=== PATIENT | female | born 1985 | race Caucasian/White ===

== ENCOUNTER 2016-08-23 21:10 | Inpatient (IN) | payer OTHER ==
[2016-08-24] MEDS ORDERED: BUTORPHANOL TARTRATE 1 MG/ML VIAL IVPB ONE ×2 (01:28→13:35)
[2016-08-24] MEDS ORDERED: DEXTROSE 5%-LACTATED RINGERS 1,000 ML IV SCH (01:30)
[2016-08-24] MEDS ORDERED: SODIUM PHOSPHATE/NA BIPHOS 133 ML ENEMA PR ONE (01:31)
--- NOTE | 2016-08-24 01:46 | HP ---
Past Medical History - Primary Care Physician PCP:: Carmen Hurley - Admission Chief Complaint: 30 yrs ,40 weeks by dates 7 38.5/7 weeks by sono is admitted in early labor . Onset Lp since 5.00pm 08/23/16 . Grand Multipara. Large tortuous bilaleral varicose veins in both legs History of Present Illness: pnc at [address] [place] [address] .Wt gain 15 lbs work up : O Pos, , Hbsag neg, Rpr nr, Rubella pos,Hiv neg, Quantiferon neg, GBS neg Gc/Ct neg . 1 Hr Gtt 143, 3Hr Gtt wnl ( 69,149,117,,100) Serial growth sono were done by MFM. .Last sono on 07/17/16 32.5/7 wks, 72% tile growth(2191gm), bpp8/8, Vx NT Screen was not done. Quad Screen was neg pt did not use TEDS during for varicose veins bilateral ,. ( reason she stated itching ) . 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 01/24/16 pap NILM) ...: 7 ...Para: 5 ...Term: 5 ...Spon : 1 ...LMP: 11/18/15 ... Weeks Gestation by Dates: 40 ...EDC by Dates: 08/24/16 ...EDC by Sono: 09/02/16 (38.5 weeks ) Additional OB History: G1 06/19/03 ,girl [facility]. G2 06/27/05 boy [facility]. G3 04/23/08 boy 8'10" [facility]. G4 07/20/09 sp ab. G5 11/15/11 boy 7'11' [facility]. G6 11/25/12 boy 8; [facility] Heme/Onc: No: Anemia Infectious Disease: Yes: STD's (h/o Hr HPV pos & conyloma h/o chlamydia treated in past) Psych: No: Addictions, Anxiety, Bipolar, Depression - Past Surgical History Past Surgical History: Yes: None Hx Myomectomy: No Hx Transabdominal Cerclage: No - Smoking History Smoking history: Never smoked Aproximately how many cigarettes per day: 0 - Alcohol/Substance Use Hx Alcohol Use: No History of Substance Use: reports: None - Social History History of Recent Travel: No Home Medications - Allergies Allergies/Adverse Reactions: Allergies Allergy/AdvReac Type Severity Reaction Status Date / Time No Known Allergies Allergy Verified 08/24/16 02:09 - Home Medications Home Medications: Ambulatory Orders Ferrous Sulfate 325 mg PO DAILY 08/24/16 Vit Calc,Iron,Folic [ Vitamins] 1 each PO DAILY 08/24/16 Physical Exam - Maternity Vital Signs: Vital Signs Temperature 98.0 F 08/23/16 21:30 Pulse Rate 82 08/23/16 21:30 Respiratory Rate 20 08/23/16 21:30 Blood Pressure 124/72 08/23/16 21:30 O2 Sat by Pulse Oximetry (%) Constitutional: Yes: Well Nourished, Moderate Distress Eyes: Yes: WNL HENT: Yes: WNL, Normocephalic Neck: Yes: WNL Cardiovascular: Yes: WNL, Regular Rate and Rhythm Lungs: Clear to auscultation Breast(s): Yes: WNL - Abdominal Exam/OB Fundal Height: 38 Number of Fetuses: Single Presentation: Vertex Contractions: Yes Regularity: Regular (3-4min) Intensity: Moderate Heart Rate (range): 140 Heart Rate Location: [facility] Category: I Accelerations: Uniform Decelerations: None - Vaginal Exam/OB Vaginal Bleediing: No Dilatation (cm): 1-2 Effacement (%): 50 Amniotic Membrane Status: Intact Presentation: Vertex/Position Station: -3 - Physical Exam Musculoskeletal: Yes: WNL Extremities: Yes: WNL, Calf Tenderness, Delayed Capillary Refill Edema: LLE: 1+, RLE: 1+ Integumentary: Yes: Pressure Ulcer (bilateral both legs, dry skin . ulcer from scratcing rt leg>lt leg), Venous Stasis Changes (blateral large totuous varicose veins upto thigh) Deep Tendon Reflex Grade: Normal +2 ...Motor Strength: WNL Psychiatric: Yes: WNL, Alert, Oriented - Labs Lab Results: Laboratory Tests 08/24/16 08/24/16 08/24/16 01:45 01:45 01:45 WBC 6.8 Hgb 12.0 D Hct 35.0 D Plt Count 173 Neutrophils % 66.7 Lymphocytes % 26.2 Monocytes % 5.5 INR 0.96 PTT (Actin FS) 26.8 L Sodium 140 Potassium 3.4 L Chloride 105 BUN 7 D Creatinine 0.5 L Random Glucose 98 D Urine Protein Ur Leukocyte Esterase Urine RBC Urine WBC 08/24/16 05:40 WBC Hgb Hct Plt Count Neutrophils % Lymphocytes % Monocytes % INR PTT (Actin FS) Sodium Potassium Chloride BUN Creatinine Random Glucose Urine Protein Negative Ur Leukocyte Esterase Trace H Urine RBC 2 Urine WBC 3 Problem List - Problems (1) 40 weeks gestation of Code(s): Z3A.40 - 40 WEEKS GESTATION OF (2) Labor established Code(s): AZF9877 - (3) Varicose veins of bilateral lower extremities with other complications Code(s): I83.893 - VARICOSE VEINS OF BI LOW EXTREM W OTH COMPLICATIONS (4) Grand multipara in labor Code(s): O09.40 - SUPERVISION OF W GRAND MULTIPARITY, UNSP TRIMESTER Assessment/Plan 30 yrs , ,40 weeks by dates, 38.5 weeks by sono admitted in early labor, ( latent labor ) pt very uncomfortable . bilateral large varicose veins . gbs neg plan fleet enema, shower stadol prn for labor analgesia pitocin augmentation prn trial vaginal delivery
[2016-08-24 02:24] LABS: BASOPHIL 0.5 % (0-2.0); EOSINOPHIL 1.1 % (0-4.5); MCH 31.4 pg (25.7-33.7); MCHC 34.4 g/dl (32.0-36.0); MEAN CELL VOLUME 91.2 fl (80-96); MEAN PLT VOLUME 8.5 fl (7.5-11.1); NEUTROPHILS 66.7 % (42.8-82.8); PLATELET COUNT 173 K/MM3 (134-434); RDW 13.8 % (11.6-15.6); WHITE BLOOD COUNT 6.8 K/mm3 (4.0-10.0)
[2016-08-24 02:38] VITALS: BMI 34.6
[2016-08-24 02:45] LABS: INR 0.96 (0.82-1.09); PROTHROMBIN TIME (PATIENT) 10.5 SEC (9.98-11.88)
[2016-08-24 02:48] LABS: ACTIVATED PTT 26.8 SECONDS (26.9-34.4)
[2016-08-24 02:53] LABS: CALCIUM 8.4 mg/dL (8.5-10.1); CREATININE 0.5 mg/dL (0.55-1.02)
[2016-08-24] MEDS ORDERED: OXYTOCIN 15 UNITS/ LR 250 ML 250 ML IVPB SCH (05:00)
[2016-08-24 06:08] LABS: URINE APPEARANCE CLEAR; URINE BILIRUBIN NEGATIVE (NEGATIVE); URINE COLOR LT. YELLOW; URINE GLUCOSE (UA) NEGATIVE (NEGATIVE); URINE KETONE NEGATIVE (NEGATIVE); URINE NITRITE NEGATIVE (NEGATIVE); URINE PROTEIN NEGATIVE (NEGATIVE); URINE UROBILINOGEN 0.2 E.U/dl E.U./dl (0.2-1.0)
[2016-08-24 06:15] LABS: URINE BLOOD 3+ (NEGATIVE); URINE LEUK ESTERASE TRACE (NEGATIVE)
[2016-08-24 06:34] LABS: URINE MUCUS RARE; URINE RBC 2 /hpf (0-3); URINE WBC 3 /hpf (3-5)
--- NOTE | 2016-08-24 09:39 | PN ---
Progress Note (short form) - Note Progress Note: pt was given stadol at 6.00am she was relaxed & slept presently UC are 2-3 min , mild to moderate FHR 150 cat-1 Selected Entries 08/24/16 08/24/16 06:00 09:01 Temperature 98.1 F Pulse Rate 91 H Blood Pressure 121/61 pelvic exam, no change bladder is full cx 2 cm/50%Mi vx -3 plan pitocin augmentation . Problem List - Problems (1) 40 weeks gestation of Code(s): Z3A.40 - 40 WEEKS GESTATION OF (2) Labor established Code(s): BBG9287 - (3) Varicose veins of bilateral lower extremities with other complications Code(s): I83.893 - VARICOSE VEINS OF BI LOW EXTREM W OTH COMPLICATIONS (4) Grand multipara in labor Code(s): O09.40 - SUPERVISION OF W GRAND MULTIPARITY, UNSP TRIMESTER
--- NOTE | 2016-08-24 13:35 | PN ---
Progress Note, Labor Vaginal Exam #1 Labor Exam Date: 08/24/16 Labor Exam Time: 13:05 Heart Rate (range): 150 Dilatation: 3-4 Effacement (%): 70 Amniotic Membrane Status: Ruptured (AROM clear) Presentation: Vertex/Position Station: -3 Remarks: FHR cat-1 UC Q Q2-3 MIN pITOCIN 5 ML/HR Selected Entries 08/24/16 13:00 Pulse Rate 81 Blood Pressure 111/69 Vaginal Exam #2 Labor Exam Date: 08/24/16 Labor Exam Time: 14:00 Heart Rate (range): 150 Dilatation: 4-5 Effacement (%): 80 Amniotic Membrane Status: Ruptured Presentation: Vertex/Position Station: -2 (-3/-2) Remarks: FHR cat-1 UC q2-3 min Vaginal Exam #3 Labor Exam Date: 08/24/16 Labor Exam Time: 16:20 Heart Rate (range): 140 Dilatation: 8-9 Effacement (%): 100 Amniotic Membrane Status: Ruptured Presentation: Vertex/Position Station: +1 Remarks: fhr cat-1 uc q2 min . pt refrained from pushing Selected Entries 08/24/16 16:00 Temperature 98.1 F Pulse Rate 86 Blood Pressure 109/74 Vaginal Exam #4 Labor Exam Date: 08/24/16 Labor Exam Time: 16:30 Heart Rate (range): 140 Dilatation: 10 Effacement (%): 100 Amniotic Membrane Status: Ruptured Presentation: Vertex/Position Station: +2 Remarks: pt pushing
[2016-08-24] MEDS ORDERED: METHYLERGONOVINE MALEATE 0.2 MG/1 ML AMP IM PRN (16:40)
[2016-08-24] MEDS ORDERED: BISACODYL 10 MG SUPP.RECT RC PRN (16:51)
[2016-08-24] MEDS ORDERED: oxyCODONE HCL 5 MG TABLET PO PRN (16:51)
[2016-08-24] MEDS ORDERED: BENZOCAINE 28 GM HEMORRHOIDAL OINTMENT TP PRN (16:51)
[2016-08-24] MEDS ORDERED: WITCH HAZEL 50% (TUCKS) 40 PAD/JAR PAD TP PRN (16:51)
[2016-08-24] MEDS ORDERED: BENZOCAINE 20% 57 GM BOTTLE TP PRN (16:51)
[2016-08-24] MEDS ORDERED: D5W-LR W/ 20 UNITS OXYTOCIN 1,000 ML IV SCH (17:00)
--- NOTE | 2016-08-24 17:05 | PN ---
Delivery - Delivery Vaginal Delivery: No Problems, Spontaneous Episiotomy/Laceration: None EBL (cc): 250 (prophylactic im Methergine 0.2 mg im given at 4.40pm ) Delivery, Single - Stages of Labor Date 1st Stage Initiatied: 08/23/16 Time 1st Stage Initiated: 17:00 Date 2nd Stage Initiated: 08/24/16 Time 2nd Stage Initiated: 16:30 Date of Delivery: 08/24/16 Time of Delivery: 16:36 Date Placenta Delivered: 08/24/16 Time Placenta Delivered: 16:40 Placenta: Yes: Spontaneous, Uterine Exploration - Condition of Grocery Team Member/Care Aid Present: No Infant Gender: Female Weight: 7 lb 6 oz Position: Left, OA - 1 Minute Total Score: 9 5 Minutes Total Score: 9 - Feeding Plan Initial Plan: Elected not to breastfeed exclusively throughout hospitalization Remarks - Remarks Remarks: 30 yrs ,( Grand Multip ) 38.5/7 weeks by sono 40 weeks by dates , admitted in early labor. PNC at [address] [place] [address] . GBS neg Pitocin Augmentation was given . Intra IV Stadol 2 mg was given x2 for labor analgesia . Intra course uneventful
[2016-08-24] MEDS: ACETAMINOPHEN 325 MG TABLET (FP) PO PRN ×2 (18:11→22:27)
[2016-08-24] MEDS: FERROUS SO4 325 MG TABLET (FP) PO SCH (18:11)
[2016-08-24] MEDS: IBUPROFEN 600 MG TABLET (FP) PO PRN ×2 (18:13→22:26)
--- NOTE | 2016-08-25 04:55 | PN ---
Post Progress Note Post Day: 1 Type of Delivery: Vital Signs: Vital Signs Temperature 98.0 F 08/24/16 21:00 Pulse Rate 58 L 08/24/16 21:00 Respiratory Rate 18 08/24/16 21:00 Blood Pressure 105/69 08/24/16 21:00 O2 Sat by Pulse Oximetry (%) Breast Exam: Yes: Soft Uterus: Yes: Fundus Firm Abdomen/GI: Yes: Abdomen soft Lochia: Yes: Rubra Lochia, amount: Small Extremities: Yes: Calves non-tender Perineum: Yes: Intact Activity: Ambulating - Labs Labs: CBC WBC 6.8 K/mm3 (4.0-10.0) 08/24/16 01:45 RBC 3.84 M/mm3 (3.60-5.2) D 08/24/16 01:45 Hgb 12.0 GM/dL (10.7-15.3) D 08/24/16 01:45 Hct 35.0 % (32.4-45.2) D 08/24/16 01:45 MCV 91.2 fl (80-96) 08/24/16 01:45 MCHC 34.4 g/dl (32.0-36.0) 08/24/16 01:45 RDW 13.8 % (11.6-15.6) 08/24/16 01:45 Plt Count 173 K/MM3 (134-434) 08/24/16 01:45 MPV 8.5 fl (7.5-11.1) 08/24/16 01:45 Neutrophils % 66.7 % (42.8-82.8) 08/24/16 01:45 Lymphocytes % 26.2 % (8-40) 08/24/16 01:45 Monocytes % 5.5 % (3.8-10.2) 08/24/16 01:45 Eosinophils % 1.1 % (0-4.5) 08/24/16 01:45 Basophils % 0.5 % (0-2.0) 08/24/16 01:45 Assessment/Plan oob leg id better routine cfea check labs
[2016-08-25] MEDS: FERROUS SO4 325 MG TABLET (FP) PO SCH ×2 (08:09→17:14)
[2016-08-25 08:27] LABS: BASOPHIL 0.8 % (0-2.0); EOSINOPHIL 1.1 % (0-4.5); MCH 31.9 pg (25.7-33.7); MCHC 34.9 g/dl (32.0-36.0); MEAN CELL VOLUME 91.4 fl (80-96); NEUTROPHILS 75.4 % (42.8-82.8); PLATELET COUNT 162 K/MM3 (134-434); RDW 14.3 % (11.6-15.6); WHITE BLOOD COUNT 8.9 K/mm3 (4.0-10.0)
[2016-08-25] MEDS: ENOXAPARIN NA (PORCINE) 40 MG/0.4 ML DISP.SYRIN SQ SCH (09:55)
[2016-08-25] MEDS: IBUPROFEN 600 MG TABLET (FP) PO PRN ×2 (09:56→20:46)
[2016-08-25] MEDS: ACETAMINOPHEN 325 MG TABLET (FP) PO PRN ×2 (09:59→20:45)
[2016-08-25] MEDS: PRENATAL VITAMINS W/ FOLIC ACID TABLET (FP) PO SCH (10:00)
[2016-08-25] MEDS ORDERED: SENNOSIDES/DOCUSATE COMBO (SENNA PLUS) TABLET (UD) PO PRN (22:00)
[2016-08-26] MEDS: FERROUS SO4 325 MG TABLET (FP) PO SCH (08:00)
[2016-08-26 08:18] VITALS: BP 102/61; PULSE 70; TEMP 97.7
--- NOTE | 2016-08-26 08:57 | PN ---
Progress Note (short form) - Note Progress Note: ppd 2 , no c/o CBC, BMP 08/25/16 07:30 08/24/16 01:45 Last Vital Signs Temp Pulse Resp BP Pulse Ox 97.7 F 70 20 102/61 97 08/26/16 08:16 08/26/16 08:16 08/26/16 08:16 08/26/16 08:16 08/25/16 20:42 uterus firm, non tender no excess vaginal bleeding lower ext , varicose vein , non tender Doppler negative plan d/c home. ambulate, follow up with DR Alarcon for varicose veins, rtc 4 weeks
[2016-08-26] MEDS: PRENATAL VITAMINS W/ FOLIC ACID TABLET (FP) PO SCH (09:16)
[2016-08-26] MEDS: ENOXAPARIN NA (PORCINE) 40 MG/0.4 ML DISP.SYRIN SQ SCH (09:16)
[2016-08-26] MEDS: ACETAMINOPHEN 325 MG TABLET (FP) PO PRN (09:16)
[2016-08-26] MEDS: IBUPROFEN 600 MG TABLET (FP) PO PRN (09:19)
--- NOTE | 2016-08-26 10:39 | PN ---
Progress Note (short form) - Note Progress Note: Vascular Surgery Pt seen and examined yest. Bilateral lower ext varicose veins with swelling Will come to vascular clinic as outpt, and will work pt up for laser therapy and put pt into stockings. Card given to call for appt. Sven Rivera DO
--- NOTE | 2016-08-28 08:49 | DS ---
Physical Exam-CANCER GENETICS ASSISTANT Vital Signs: Vital Signs Temperature 97.7 F 08/26/16 08:16 Pulse Rate 70 08/26/16 08:16 Respiratory Rate 20 08/26/16 08:16 Blood Pressure 102/61 08/26/16 08:16 O2 Sat by Pulse Oximetry (%) 97 08/25/16 20:42 Constitutional: Yes: Well Nourished Eyes: Yes: WNL HENT: Yes: WNL Neck: Yes: WNL Cardiovascular: Yes: WNL Respiratory: Yes: WNL Gastrointestinal: Yes: WNL Renal/: Yes: WNL ....Post : Yes: Uterus firm, Uterus non-tender, Moderate lochia rubra ( perineum intact) Breast(s): Yes: WNL Musculoskeletal: Yes: WNL Extremities: Yes: WNL, Other (bilateral large tortouos varicose veins . doppler flow study was neg for DVT dvt prcautions were taken, TEDS, & SCD & Lovenox sq was given vascular consult obtained from DR Sven Nair. no ulcerations , or stasis ulcers noted ,pt is instructed to follow in his office after 2 weeks). No: Calf Tenderness Edema: Yes Neurological: Yes: WNL ...Motor Strength: WNL Psychiatric: Yes: WNL Labs: CBC, BMP 08/25/16 07:30 08/24/16 01:45 Delivery - Delivery Vaginal Delivery: No Problems, Spontaneous Episiotomy/Laceration: None EBL (cc): 250 (prophylactic im Methergine 0.2 mg im given at 4.40pm ) Delivery, Single - Stages of Labor Date 1st Stage Initiatied: 08/23/16 Time 1st Stage Initiated: 17:00 Date 2nd Stage Initiated: 08/24/16 Time 2nd Stage Initiated: 16:30 Date of Delivery: 08/24/16 Time of Delivery: 16:36 Time Placenta Delivered: 16:40 Placenta: Yes: Spontaneous, Uterine Exploration - Condition of Account Services Analyst/Sales Management Intern Present: No Gender: Female Weight: 7 lb 6 oz Position: Left, OA Total Hours ROM (Hrs/Mins): 3hr 31min. - 1 Minute Total Score: 9 5 Minutes Total Score: 9 - Feeding Plan Initial Plan: Elected not to breastfeed exclusively throughout hospitalization Remarks - Remarks Remarks: 30 yrs ,( Grand Multip ) 38.5/7 weeks by sono 40 weeks by dates , admitted in early labor. PNC at [address] [place] [address] . GBS neg Pitocin Augmentation was given . Intra IV Stadol 2 mg was given x2 for labor analgesia . Intra course uneventful. post op course uneventful discharged on 08/26/16 Discharge Summary Reason For Visit: LABOR ADMIT Condition: Stable - Instructions Diet, Activity, Other Instructions: Post Instructions DIET: Continue good diet high in protein, calcium, and iron rich foods. Drink at least eight (8) glasses of water daily in addition to other fluids. Regular diet MEDICATIONS: Continue vitamins and iron as previously directed. Motrin and Tylenol may be taken for minor discomfort. ACTIVITY: Mild to moderate exercise may be started in two (2) weeks. Take frequent rest periods. Resume normal activity after six (6) week check up. WOUND CARE OF OPERATIVE SITE: Continue use of perineal bottle until vaginal discharge stops. Keep area clean. Shower daily. Keep abdominal wound dry. Report any drainage or redness to physician. Tub baths, tampons and douches are not permitted for [address] Breast feeding &_ Bottle feeding BREAST CARE: (For those that are not breast feeding): If engorgement occurs: Wear tight fitting bra. Take Tylenol or Motrin for pain. Apply cold packs (ice in bags to each breast ) FAMILY PLANNING: There are many control alternatives to pursue and they should be discussed at your first office visit. You may resume sexual activity after your six (6) week check up. (Remember, breast feeding is not a contraceptive) NEXT PHYSICIAN APPOINTMENT: Be certain to call for a six (6) week appointment, unless otherwise directed. Call Clinic or got to Emergency Dept if you have any of the following: Heavy vaginal bleeding Painful urination Leg pain Unusual odor noted to vaginal bleeding High fever Red streaking noted on breast Post Instructions DIET: Continue good diet high in protein, calcium, and iron rich foods. Drink at least eight (8) glasses of water daily in addition to other fluids. ___ Regular diet ___ LoCarb/Low Calorie Diet ___ Diabetic Diet MEDICATIONS: Continue vitamins and iron as previously directed. Motrin and Tylenol may be taken for minor discomfort. ACTIVITY: Mild to moderate exercise may be started in two (2) weeks. Take frequent rest periods. Resume normal activity after six (6) week check up. WOUND CARE OF OPERATIVE SITE: Continue use of perineal bottle until vaginal discharge stops. Keep area clean. Shower daily. Keep abdominal wound dry. Report any drainage or redness to physician. Tub baths, tampons and douches are not permitted for 6 weeks. ____ Breast feeding ___ Bottle feeding BREAST CARE: (For those that are not ): If engorgement occurs: Wear tight fitting bra. Take Tylenol or Motrin for pain. Apply cold packs (ice in bags to each breast ) FAMILY PLANNING: There are many control alternatives to pursue and they should be discussed at your first office visit. You may resume sexual activity after your six (6) week check up. (Remember, is not a contraceptive) NEXT PHYSICIAN APPOINTMENT: Be certain to call for a six (6) week appointment, unless otherwise directed. Call Clinic or got to Emergency Dept if you have any of the following: Heavy vaginal bleeding Painful urination Leg pain Unusual odor noted to vaginal bleeding High fever Red streaking noted on breast return to clinic in 6 weeks. call [facility] for appointment. [phone] nair's office in 2 weeks. Referrals: Carmen Hurley MD [Staff Physician] - Sven Nair MD [Staff Physician] - 2 Weeks (call for appointment in 2 weeks.) Disposition: HOME - Home Medications Comprehensive Discharge Medication List: Ambulatory Orders Ferrous Sulfate 325 mg PO DAILY 08/24/16 Vit Calc,Iron,Folic [ Vitamins] 1 each PO DAILY 08/24/16 Acetaminophen [Tylenol .Regular Strength -] 650 mg PO Q3H PRN #0 tablet Ibuprofen [Motrin -] 200 mg PO Q4H PRN #0 tablet 08/25/16 Vitamins (Sjr) - 1 tab PO DAILY tablet 08/25/16
== END 2016-08-26 17:00 | disposition home or self-care (01) | DRG 560 ==
LOC: JDEL 21:10 → JLDR 08-24 01:15 → J3W 08-24 17:27
PROVIDERS: ADMIT Obstetrics & Gynecology; ATTEND Obstetrics & Gynecology
PROC: 10E0XZZ Delivery of Products of Conception, External Approach (ICD-10-PCS; principal; 2016-08-24)
PROC: 10907ZC Drainage of Amniotic Fluid, Therapeutic from Products of Conception, Via Natural or Artificial Opening (ICD-10-PCS; 2016-08-24)
DX: O22.03 Varicose veins of lower extremity in pregnancy, third trimester (principal); Z3A.38 38 weeks gestation of pregnancy; Z37.0 Single live birth
CPT/HCPCS: 36415; 59025; 59409; 80048; 81003; 81015; 85025; 85610; 85730; 86593; 86850; 86900; 86901; 93970-TC

== ENCOUNTER 2017-10-25 16:59 | Emergency (ER) | payer OTHER ==
--- NOTE | 2017-10-25 17:18 | PDOC ---
History of Present Illness - General Stated Complaint: BLEEDING 8 WEEKS Time Seen by Provider: 10/25/17 17:11 - History of Present Illness Initial Comments: 10/25/17 17:16 31 yo F with h/o at 8 wga, LMP 09/03/17 who p/w left sided abdominal pain. Patient reports two days of LUQ, unremitting, pressure, with no identifiable triggers or alleviators. Radiates to left sided back. Asx. w/ nausea and non bloody emesis. Also endorses one day of intermittent retrosternal chest pressure. No associated vaginal bleeding/discharge or pelvic pain. Normal daily stools, with absent BPR. Denies F/C, N/V, CP, SOB, abdominal pain, diarrhea, constipation, urinary complaints, weakness, lightheadedness, sensory changes. PMHx: as noted above. 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 U/S scheduled next week. Denies abdominal surgery. ROS: as noted above SHx: Denies Etoh, IVDA, or tobacco use. Allergies: NKDA Past History - Past Medical History Allergies/Adverse Reactions: Allergies Allergy/AdvReac Type Severity Reaction Status Date / Time No Known Allergies Allergy Verified 08/24/16 02:09 Home Medications: Ambulatory Orders Vitamins (Sjr) - 1 tab PO DAILY tablet 08/25/16 Asthma: No Cancer: No Cardiac Disorders: No Diabetes: No HTN: No Seizures: No Thyroid Disease: No - Suicide/Smoking/Psychosocial Hx Smoking Status: No Smoking History: Never smoked Number of Cigarettes Smoked Daily: 0 Hx Alcohol Use: No Drug/Substance Use Hx: No Hx Substance Use Treatment: No Review of Systems - Review of Systems Comments:: 10/25/17 17:16 GENERAL/CONSTITUTIONAL: No fever or chills. No weakness. HEAD, EYES, EARS, NOSE AND THROAT: No change in vision. No ear pain or discharge. No sore throat. CARDIOVASCULAR: +chest pain. No shortness of breath RESPIRATORY: No cough, wheezing, or hemoptysis. GASTROINTESTINAL: + abdominal pain, nausea, vomiting. No diarrhea or constipation. GENITOURINARY: No dysuria, frequency, or change in urination. MUSCULOSKELETAL: No joint or muscle swelling or pain. No neck or back pain. SKIN: No rash NEUROLOGIC: No headache, vertigo, loss of consciousness, or change in strength/ sensation. ENDOCRINE: No increased thirst. No abnormal weight change HEMATOLOGIC/LYMPHATIC: No anemia, easy bleeding, or history of blood clots. ALLERGIC/IMMUNOLOGIC: No hives or skin allergy. *Physical Exam - Physical Exam Comments: 10/25/17 17:17 GENERAL: Awake, alert, and fully oriented, in no acute distress HEAD: No signs of trauma, normocephalic, atraumatic EYES: PERRLA, EOMI, sclera anicteric, conjunctiva clear ENT: Auricles normal inspection, hearing grossly normal, nares patent, oropharynx clear without exudates. Moist mucosa NECK: Normal ROM, supple, no lymphadenopathy, JVD, or masses LUNGS: No distress, speaks full sentences, clear to auscultation bilaterally HEART: Regular rate and rhythm, normal S1 and S2, no murmurs, rubs or gallops, peripheral pulses normal and equal bilaterally. ABDOMEN: Soft, + LUQ ttp. nontender, normoactive bowel sounds. No guarding, no rebound. No masses. + L CVA ttp. : Normal appearing external genitalia, vaginal vault clear with scant blood at cervix , and white discharge. Cervical os closed. Neg CMT on BM. EXTREMITIES : Normal inspection, Normal range of motion, no edema. No clubbing or cyanosis. NEUROLOGICAL: Cranial nerves II through XII grossly intact. Normal speech, normal gait, no focal sensorimotor deficits SKIN: Warm, Dry, normal turgor, no rashes or lesions noted ED Treatment Course - LABORATORY CBC & Chemistry Diagram: 10/25/17 17:46 10/25/17 17:46 Medical Decision Making - Medical Decision Making 10/25/17 17:58 31 yo F with h/o at 8 wga, LMP 09/03/17 who p/w LUQ abdominal pain. VSS < AF, A&Ox3. + LUQ ttp. Possible gastritis, colitis, biliary disease , pancreatitis, nephrolithiasis. Assess for viable IUP. No evidence of vaginal bleed. R/o ectopic . Low suspicion placenta previa, threatened . Absent lower abdominal ttp. Low suspicion of ovarian torsion, appendicitis. ED Course: CBC, CMP, Cardiac Pr. Lipase EKG, CXR UA, Urine Preg, HCG 10/25/17 18:20 10/25/17 20:18 CBC,CMP: Unremarkable HC UA: Neg Transvaginal U/S: 8 w 3d, FHR 180. Patient stable and advised to f/u with [facility] [facility]pper within 1 week. Stable for d/c with return precautions. *DC/Admit/Observation/Transfer Diagnosis at time of Disposition: Vaginal bleeding before 22 weeks gestation, Abdominal pain affecting - Discharge Dispostion Condition at time of disposition: Stable Decision to Admit order: No - Referrals Referrals: Erna De Santiago [Primary Care Provider] - - Patient Instructions Printed Discharge Instructions: DI for Abdominal Pain -- Early Additional Instructions: Please return to the emergency department with any new or worsening symptoms or concerns. Please follow up with your nutrition internship physician within 72 hours. - Post Discharge Activity - Attestations Physician Attestion: 10/25/17 17:17 I attest to the information provided in this note.
[2017-10-25 17:21] VITALS: BP 119/65; PULSE 79; TEMP 97.9
[2017-10-25] MEDS ORDERED: ACETAMINOPHEN 1000 MG/100 ML VIAL (NON FORMULARY) IVPB ONE (17:58)
[2017-10-25] MEDS ORDERED: SODIUM CHLORIDE 1,000 ML IV STA (17:58)
[2017-10-25 18:07] LABS: BASO % 1.2 % (0-2.0); EOS % 1.7 % (0-4.5); HEMATOCRIT 40.4 % (32.4-45.2); HEMOGLOBIN 13.9 GM/dL (10.7-15.3); MCHC 34.3 g/dl (32.0-36.0); MEAN CELL VOLUME 87.5 fl (80-96); MEAN PLT VOLUME 7.9 fl (7.5-11.1); MONO % 5.1 % (3.8-10.2); PLATELET COUNT 265 K/MM3 (134-434); RBC 4.62 M/mm3 (3.60-5.2); WHITE BLOOD COUNT 6.9 K/mm3 (4.0-10.0)
--- NOTE | 2017-10-25 18:10 | PDOC ---
Attending Attestation - [facility] HPI: 10/25/17 18:48 The patient is a 31 year old female who is currently , A1 with no significant past medical history, who presents to the emergency department complaining of abdominal pain and intermittent nausea for the past 2 days.She reports that her pain is located in the left upper quadrant, which she describes as a pressure. She denies any modifying factors and notes radiation of the pain to the left side. She reports an episode of emesis that is nonbloody. She also reports some mild chest pressure for the past day, without radiation or modifying. She denies any vaginal bleeding or rectal bleeding. She reports one episode of vaginal discharge last week. She notes that she is scheduled to go to see her BREWER HELPER next week. She states that she has been having normal daily bowel movements. The patient denies shortness of breath, headache or dizziness. Denies fever, chills, diarrhea and constipation. Denies dysuria, frequency, urgency and hematuria. LMP: 09/03/2017 Allergies: None Past surgical history: None reported Social History: No alcohol, tobacco or drug use reported - Physicial Exam PE: 10/25/17 18:48 Constitutional: Awake, alert, oriented. No acute distress. Head: Normocephalic. Atraumatic Eyes: PERRL. EOMI. Conjunctivae are not pale. ENT: Mucous membranes are moist and intact. Posterior pharynx without exudates or erythema. Uvula midline. Neck: Supple. Full ROM. No lymphadenopathy. Cardiovascular: Regular rate. Regular rhythm. S1, S2 regular. Distal pulses are 2+ and symmetric. Pulmonary/Chest: No evidence of respiratory distress. Clear to auscultation bilaterally No wheezing, rales or rhonchi. Abdominal: (+) Left CVA tenderness. Soft and non-distended. No rebound, guarding or rigidity. No organomegaly. No palpable masses. Good bowel sounds. Musculoskeletal: No edema. No cyanosis. No clubbing. Full range of motion in all extremities. Nocalf tenderness. Radial/pedal pulses are intact and 2+ bilaterally Skin: Skin is warm and dry. No petechiae. No purpura. Neurological: Alert and oriented to person, place, and time. Cranial nerves II -XII are grossly intact. Normal speech. Strength is grossly symmetric. No sensory deficits. Psychiatric: Good eye contact. Normal interaction, affect and behavior. BREWER HELPER EXAM: Ox is closed, no CMT or adnexal tenderness. No vaginal wall bleeding. <Lucho Castañeda - Last Filed: 10/25/17 18:47> - Resident Resident Name: EduardoKendell - ED Attending Attestation I have performed the following: I have examined & evaluated the patient, The case was reviewed & discussed with the resident, I agree w/resident's findings & plan, Exceptions are as noted - Medical Decision Making 10/25/17 18:10 I, Dr. Courtney Glynn, DO, attest that this document has been prepared under my direction and personally reviewed by me in its entirety. I further attest, that it accurately reflects all work, treatment, procedures and medical decision -making performed by me. 10/25/17 18:41 a/p: 31yo female with FDLMP in August with poss preg LUQ pain no vag bleeding Dr. Christian is billing services manager normal bm mild LUQ pain and L cva ttp +nausea will check labs, pelvic u/s will monitor and reassess 10/25/17 20:19 pt Rh + +preg ultrasound pending 10/25/17 20:24 8weeks 3 days on ultrasound HR 180 pending UA 10/25/17 22:11 ua negative stable for d/c to home <Courtney Glynn - Last Filed: 10/25/17 22:11> Discharge Disposition - Discharge Dispostion Last Admission D/C Date: 08/26/16 <Courtney Glynn - Last Filed: 10/25/17 22:11> - Diagnosis Vaginal bleeding before 22 weeks gestation, Abdominal pain affecting - Discharge Dispostion Disposition: HOME Condition at time of disposition: Stable - Referrals Referrals: Erna De Santiago [Primary Care Provider] - - Patient Instructions Printed Discharge Instructions: DI for Abdominal Pain -- Early Additional Instructions: Please return to the emergency department with any new or worsening symptoms or concerns. Please follow up with your conservation specialist physician within 72 hours. - Post Discharge Activity
[2017-10-25 18:35] LABS: INR 0.89 (0.82-1.09); PROTHROMBIN TIME (PATIENT) 10.1 SEC (9.7-13.0)
[2017-10-25 18:50] LABS: ANION GAP 8 (8-16); BILIRUBIN,TOTAL 0.3 mg/dL (0.2-1.0); BLOOD UREA NITROGEN 7 mg/dL (7-18); CALCIUM 8.9 mg/dL (8.5-10.1); CHLORIDE 105 mmol/L (98-107); CO2 25 mmol/L (21-32); CREATININE 0.6 mg/dL (0.55-1.02); GLUCOSE,RANDOM 78 mg/dL (74-106); POTASSIUM 3.7 mmol/L (3.5-5.1); SGOT/AST 34 U/L (15-37); SGPT/ALT 41 U/L (12-78); SODIUM 138 mmol/L (136-145)
[2017-10-25 18:51] LABS: ALK PHOS 77 U/L (45-117); TOT PROT 8.4 g/dl (6.4-8.2)
[2017-10-25] MEDS ORDERED: ACETAMINOPHEN INJECTION 100 ML IVPB ONE (18:58)
[2017-10-25 21:54] LABS: URINE APPEARANCE CLEAR; URINE BILIRUBIN NEGATIVE (<2.0 mg/dL); URINE BLOOD NEGATIVE (NEGATIVE); URINE COLOR YELLOW; URINE GLUCOSE (UA) NEGATIVE (NEGATIVE); URINE KETONE NEGATIVE (NEGATIVE); URINE LEUK ESTERASE NEGATIVE (NEGATIVE); URINE NITRITE NEGATIVE (NEGATIVE); URINE PROTEIN NEGATIVE (NEGATIVE); URINE UROBILINOGEN NEGATIVE mg/dL (0.2-1.0)
== END 2017-10-25 22:29 | disposition home or self-care (01) ==
LOC: JER 16:59
PROC: 3E033NZ Introduction of Analgesics, Hypnotics, Sedatives into Peripheral Vein, Percutaneous Approach (ICD-10-PCS; principal; 2017-10-25)
PROC: 3E0337Z Introduction of Electrolytic and Water Balance Substance into Peripheral Vein, Percutaneous Approach (ICD-10-PCS; 2017-10-25)
DX: O26.891 Other specified pregnancy related conditions, first trimester (principal); O46.91 Antepartum hemorrhage, unspecified, first trimester; Z3A.08 8 weeks gestation of pregnancy; R10.9 Unspecified abdominal pain
CPT/HCPCS: 36415; 76817-TC; 80053; 81003; 82550; 82553; 83690; 84484; 84702; 84703; 85025; 85610; 86850; 86900; 86901; 87086; 96361; 96374; 99282-25; J0131; J7030

== ENCOUNTER 2017-12-19 11:11 | Emergency (ER) | payer OTHER ==
[2017-12-19 11:22] VITALS: BMI 37.3
[2017-12-19] MEDS ORDERED: ONDANSETRON 4 MG/2 ML VIAL IVPUSH ONE (11:36)
[2017-12-19] MEDS ORDERED: SODIUM CHLORIDE 1,000 ML IV STA ×2 (11:36→15:28)
--- NOTE | 2017-12-19 12:05 | PDOC ---
History of Present Illness - General Chief Complaint: Nausea/Vomiting Stated Complaint: NAUSEA/VOMITING/15 WEEKS Time Seen by Provider: 12/19/17 11:35 History Source: Patient Exam Limitations: No Limitations - History of Present Illness Travel History: No Initial Comments: 12/19/17 11:51 31-year-old female currently 15 weeks presents to ED with complaints of continual nausea and vomiting since onset of but worsened over the last week. Patient states went to see her SAND CUTTER last week who recommended symptoms continue despite changing her diet to go to the nearest ER for further evaluation. Patient now complaining of mild lightheadedness, weakness and lower abdominal cramping worsened with movement. Patient states has been been drinking small sips of fluids and crackers. Patient denies vaginal discharge, vaginal bleeding, or urinary complaints. Timing/Duration: reports: getting worse, intermittent Quality: reports: mild Abdominal Pain Onset Location: reports: suprapubic Pain Radiation: reports: no radiation Activities at Onset: reports: none Aggravating Factors: improves with: Movement Alleviating Factors: improves with: Rest Past History - Travel Traveled outside of the country in the last 30 days: No - Past Medical History Allergies/Adverse Reactions: Allergies Allergy/AdvReac Type Severity Reaction Status Date / Time No Known Allergies Allergy Verified 12/19/17 11:18 Home Medications: Ambulatory Orders Vitamins (Sjr) - 1 tab PO DAILY tablet 08/25/16 Asthma: No Cancer: No Cardiac Disorders: No COPD: No Diabetes: No HTN: No Seizures: No Thyroid Disease: No Other medical history: DENIES. - Reproductive History (#): 8 Cervical CA: No Dysfunctional Uterine Bleeding: No Endometrial CA: No Tubal Ligation: No - Suicide/Smoking/Psychosocial Hx Smoking Status: No Smoking History: Never smoked Have you smoked in the past 12 months: No Number of Cigarettes Smoked Daily: 0 Hx Alcohol Use: No Drug/Substance Use Hx: No Substance Use Type: None Hx Substance Use Treatment: No Patient Lives Alone: No Lives with/in: spouse/SO Review of Systems - Review of Systems Able to Perform ROS?: No Constitutional: Yes: Weakness HEENTM: No: Symptoms Reported Respiratory: No: Symptoms reported Cardiac (ROS): Yes: Lightheadedness (mild) ABD/GI: Yes: Nausea, Poor Appetite, Poor Fluid Intake, Vomiting, Abdominal cramping : No: Symptoms Reported Musculoskeletal: No: Symptoms Reported Integumentary: No: Symptoms Reported Neurological: No: Symptoms reported, Headache Hematologic/Lymphatic: No: Symptoms Reported *Physical Exam - Vital Signs Last Vital Signs Temp Pulse Resp BP Pulse Ox 98.7 F 85 19 114/51 98 12/19/17 11:18 12/19/17 11:18 12/19/17 11:18 12/19/17 11:18 12/19/17 11:18 - Physical Exam General Appearance: Yes: Nourished, Appropriately Dressed. No: Apparent Distress HEENT: positive: EOMI, CARLOS, TMs Normal, Pharynx Normal. negative: Pale Conjunctivae Neck: positive: Normal Thyroid, Supple Respiratory/Chest: positive: Lungs Clear, Normal Breath Sounds. negative: Respiratory Distress, Accessory Muscle Use Cardiovascular: positive: Regular Rhythm, Regular Rate. negative: Murmur Female Pelvic Exam: positive: normal external exam. negative: discharge, vaginal bleeding Gastrointestinal/Abdominal: positive: Soft, Distended (gravid abdomen). negative: Tenderness Extremity: positive: Normal Capillary Refill. negative: Pedal Edema Integumentary: positive: Normal Color, Warm, Moist Neurologic: positive: Motor Strength 5/5 (ambulatory) ED Treatment Course - LABORATORY CBC & Chemistry Diagram: 12/19/17 11:48 12/19/17 11:48 - RADIOLOGY Radiology Studies Ordered: Category Date Time Status US(SINGLE) [US] Stat Ultrasound 12/19/17 11:36 Ordered Medical Decision Making - Medical Decision Making 12/19/17 11:52 Patient 15 weeks with continual nausea and vomiting despite diet modification. Patient is followed by Dr. Karolyn Christian recommended ER evaluation if symptoms continue this week. Patient also mentions mild weakness and lightheadedness with lower abdominal cramping. Patient on exam had no acute findings. Patient ordered for labs, urine, IV fluids, antiemetics, and ultrasound. 12/19/17 15:27 Laboratory Tests 12/19/17 12/19/17 12/19/17 11:48 11:48 11:48 WBC 6.0 Hgb 12.5 Hct 36.0 Plt Count 215 Neutrophils % 67.1 Sodium 136 Potassium 4.0 Chloride 106 Carbon Dioxide 25 Anion Gap 5 L BUN 9 Creatinine 0.6 Random Glucose 86 Calcium 8.5 Magnesium 1.9 Total Bilirubin 0.5 AST 48 H ALT 45 Alkaline Phosphatase 63 Total Protein 7.4 Albumin 3.2 L Lipase 109 Urine Ketones 1+ H Urine Urobilinogen 2.0 H Ur Leukocyte Esterase Negative 12/19/17 16:01 2nd liter of ivf infusing. Pt eating cookies and drinking matthias Single live intrauterine with the average sonographic gestational age of 16 weeks and 2 days. heart rate measuring 1 52 bpm. OTHERWISE UNREMARKABLE. PATIENT WILL BE DISCHARGED HOME WITH RECOMMENDATIONS TO TAKE ZOFRAN FOR NAUSEA 12/19/17 16:07 *DC/Admit/Observation/Transfer Diagnosis at time of Disposition: Hyperemesis gravidarum - Discharge Dispostion Disposition: HOME Condition at time of disposition: Improved - Referrals - Patient Instructions Printed Discharge Instructions: DI for Hyperemesis Gravidarum Additional Instructions: Take Zofran as needed for nausea. Eat small frequent meals per day and drink plenty of fluids. Please also follow-up with your SYSTEM SUPPORT ADMINISTRATOR and return to the ED if symptoms return or worsen. - Post Discharge Activity
[2017-12-19 12:06] LABS: BASO % 0.5 % (0-2.0); EOS % 0.9 % (0-4.5); HEMOGLOBIN 12.5 GM/dL (10.7-15.3); LYMPH % 26.9 % (8-40); MCH 30.8 pg (25.7-33.7); MCHC 34.8 g/dl (32.0-36.0); MEAN CELL VOLUME 88.5 fl (80-96); MEAN PLT VOLUME 7.6 fl (7.5-11.1); MONO % 4.6 % (3.8-10.2); NEUT % 67.1 % (42.8-82.8); PLATELET COUNT 215 K/MM3 (134-434); RBC 4.06 M/mm3 (3.60-5.2)
[2017-12-19] MEDS ORDERED: ONDANSETRON 4 MG/2 ML VIAL ONE (12:15)
[2017-12-19 12:29] LABS: ALBUMIN 3.2 g/dl (3.4-5.0); ANION GAP 5 (8-16); BLOOD UREA NITROGEN 9 mg/dL (7-18); CALCIUM 8.5 mg/dL (8.5-10.1); CHLORIDE 106 mmol/L (98-107); CO2 25 mmol/L (21-32); CREATININE 0.6 mg/dL (0.55-1.02); GLUCOSE,RANDOM 86 mg/dL (74-106); LIPASE 109 U/L (73-393); SGPT/ALT 45 U/L (12-78); SODIUM 136 mmol/L (136-145); TOT PROT 7.4 g/dl (6.4-8.2)
[2017-12-19 12:30] LABS: ALK PHOS 63 U/L (45-117); BILIRUBIN,TOTAL 0.5 mg/dL (0.2-1.0); MAGNESIUM 1.9 mg/dL (1.8-2.4); SGOT/AST 48 U/L (15-37)
[2017-12-19 12:49] LABS: URINE APPEARANCE CLEAR; URINE BILIRUBIN NEGATIVE (<2.0 mg/dL); URINE GLUCOSE (UA) NEGATIVE (NEGATIVE); URINE KETONE 1+ (NEGATIVE); URINE LEUK ESTERASE NEGATIVE (NEGATIVE); URINE NITRITE NEGATIVE (NEGATIVE); URINE PROTEIN NEGATIVE (NEGATIVE)
[2017-12-19 12:59] LABS: URINE COLOR YELLOW
[2017-12-19 15:28] VITALS: BP 112/52; PULSE 76; TEMP 98.5
== END 2017-12-19 16:44 | disposition home or self-care (01) ==
LOC: JER 11:11
PROC: 3E0337Z Introduction of Electrolytic and Water Balance Substance into Peripheral Vein, Percutaneous Approach (ICD-10-PCS; principal; 2017-12-19)
PROC: 3E033GC Introduction of Other Therapeutic Substance into Peripheral Vein, Percutaneous Approach (ICD-10-PCS; 2017-12-19)
DX: O26.892 Other specified pregnancy related conditions, second trimester (principal); O21.0 Mild hyperemesis gravidarum; Z3A.15 15 weeks gestation of pregnancy
CPT/HCPCS: 36415; 76801-TC; 80053; 81003; 83690; 83735; 85025; 87086; 96361; 96374; 99283-25; J7030

== ENCOUNTER 2018-05-22 23:45 | Inpatient (IN) | payer OTHER ==
[2018-05-23 00:53] LABS: BASO % 0.3 % (0-2.0); EOS % 0.2 % (0-4.5); HEMATOCRIT 33.9 % (32.4-45.2); HEMOGLOBIN 12.2 GM/dL (10.7-15.3); MCH 32.3 pg (25.7-33.7); MCHC 35.9 g/dl (32.0-36.0); MEAN CELL VOLUME 89.9 fl (80-96); MEAN PLT VOLUME 8.4 fl (7.5-11.1); MONO % 5.4 % (3.8-10.2); NEUT % 83.1 % (42.8-82.8); PLATELET COUNT 172 K/MM3 (134-434); RBC 3.77 M/mm3 (3.60-5.2); RDW 14.5 % (11.6-15.6); WHITE BLOOD COUNT 9.4 K/mm3 (4.0-10.0)
[2018-05-23 00:57] LABS: INR 0.96 (0.83-1.09); PROTHROMBIN TIME (PATIENT) 11.3 SEC (9.7-13.0)
[2018-05-23 01:00] LABS: ACTIVATED PTT 25.1 SECONDS (25.2-36.5)
[2018-05-23 01:07] LABS: ALBUMIN 2.4 g/dl (3.4-5.0); ALK PHOS 211 U/L (45-117); ANION GAP 11 MMOL/L (8-16); BILIRUBIN,TOTAL 1.3 mg/dL (0.2-1); BLOOD UREA NITROGEN 9 mg/dL (7-18); CALCIUM 8.2 mg/dL (8.5-10.1); CHLORIDE 103 mmol/L (98-107); CO2 21 mmol/L (21-32); CREATININE 0.7 mg/dL (0.55-1.3); GLUCOSE,RANDOM 146 mg/dL (74-106); POTASSIUM 3.4 mmol/L (3.5-5.1); SGOT/AST 26 U/L (15-37); SGPT/ALT 23 U/L (13-61); SODIUM 135 mmol/L (136-145); TOT PROT 6.9 g/dl (6.4-8.2)
[2018-05-23 01:08] LABS: ALBUMIN 2.4 g/dl (3.4-5.0); BILIRUBIN,DIRECT 0.9 mg/dL (0.0-0.2); BILIRUBIN,TOTAL 1.7 mg/dL (0.2-1); TOT PROT 6.9 g/dl (6.4-8.2)
[2018-05-23] MEDS ORDERED: ACETAMINOPHEN 325 MG TABLET (FP) ONE ×3 (01:34→14:18)
--- NOTE | 2018-05-23 01:46 | PN ---
Progress Note (short form) - Note Progress Note: cx 2 cm. post vx -2 mi, fhr 150range to 180 with good BTBV ,irregular contraction. c/o has cold symptoms, TEMP 99 , plan iv hydration , tylenol for cold symptoms , monitor heart, revaluate in 1 HR
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
[2018-05-23 01:48] VITALS: BMI 33.5
[2018-05-23] MEDS ORDERED: ACETAMINOPHEN 325 MG TABLET (FP) PO ONE (01:51)
[2018-05-23] MEDS: DEXTROSE 5%-LACTATED RINGERS 1,000 ML IV SCH ×2 (02:10→09:00)
[2018-05-23] MEDS ORDERED: AMPICILLIN SODIUM 2 GM VIAL ONE (02:33)
[2018-05-23] MEDS ORDERED: AMPICILLIN - 2 GM in SODIUM CHLORIDE 100 ML IVPB ONE (02:45)
[2018-05-23 03:03] LABS: URINE APPEARANCE CLOUDY; URINE BILIRUBIN NEGATIVE (<2.0 mg/dL); URINE COLOR AMBER; URINE GLUCOSE (UA) 1+ (NEGATIVE); URINE KETONE TRACE (NEGATIVE); URINE LEUK ESTERASE 3+ (NEGATIVE); URINE NITRITE POSITIVE (NEGATIVE); URINE PROTEIN 2+ (NEGATIVE); URINE UROBILINOGEN 4.0 E.U/dl mg/dL (0.2-1.0)
[2018-05-23 03:12] LABS: URINE BACTERIA RARE /hpf (NONE SEEN)
[2018-05-23] MEDS: ELECTROLYTE-148 SOLN 1,000 ML IV SCH ×2 (04:30→07:05)
[2018-05-23] MEDS ORDERED: AMPICILLIN SODIUM 1 GM VIAL ONE ×6 (06:26→21:12)
[2018-05-23] MEDS: AMPICILLIN - 1 GM in SODIUM CHLORIDE 100 ML IVPB SCH ×5 (06:30→22:40)
[2018-05-23] MEDS ORDERED: ACETAMINOPHEN 325 MG TABLET (FP) PO SCH (07:30)
[2018-05-23] MEDS ORDERED: SODIUM CHLORIDE 100 ML IVPB ONE ×4 (08:25→21:12)
[2018-05-23] MEDS ORDERED: GENTAMICIN SO4 80 MG/2 ML VIAL ONE (08:25)
[2018-05-23] MEDS ORDERED: BUTORPHANOL TARTRATE 1 MG/ML VIAL IVPUSH ONE (08:41)
[2018-05-23] MEDS ORDERED: PROMETHAZINE HCL 25 MG/1 ML VIAL IVPUSH ONE (08:41)
--- NOTE | 2018-05-23 08:41 | PN ---
Progress Note (short form) - Note Progress Note: fhr base line 165 with good BTB and accel, had temp 102.7 at 8 am , no ROM, no leakage of fluid from vagina urine consistent with UTI, pyelo, impression fever, pyelo , fhr good btbv with accel , elevated baseline secondary to fever cx 5 cm 80 vx -3 membrane bulging, AROM, clear , no odor plan ,add Gentamycin to cover gm negative for pyelo , will monitor fH and temp observation and evaluation and careful attention to cervical dilation and progress of labor
[2018-05-23] MEDS ORDERED: OXYTOCIN 30 UNITS in 0.9% NS 30 UNIT/500 ML INFUS.BAG IVPB ONE (08:52)
[2018-05-23] MEDS ORDERED: GENTAMICIN 80 MG PREMIXED IVPB 80 MG/100 ML BAG IVPB SCH (10:00)
--- NOTE | 2018-05-23 10:34 | PN ---
Progress Note (short form) - Note Progress Note: cx 5 cm 80 vx -2 mr, fhr cat 1, afebrile ,irregular contraction, advised low dose pitocin stimulation with monitoring of cervical dilation, if protractor labor advised c/s for LGA Problem List - Problems (1) with 37 or more completed weeks gestation Code(s): [id number] - (2) Cholestasis during Code(s): O26.619 - LIVER AND BILIARY TRACT DISORD IN , UNSP TRIMESTER; K83.1 - OBSTRUCTION OF BILE DUCT (3) Large for gestational age fetus Code(s): WTC6745 - (4) Obesity Code(s): E66.9 - OBESITY, UNSPECIFIED Qualifiers: Obesity type: due to excess calories (5) Grand multipara in labor Code(s): O09.40 - SUPERVISION OF W GRAND MULTIPARITY, UNSP TRIMESTER Qualifiers: Trimester: third trimester Qualified Code(s): O09.43 - Supervision of with grand multiparity, third trimester
--- NOTE | 2018-05-23 10:36 | PN ---
Progress Note (short form) - Note Progress Note: management of patient turn to Dr Linda . full report given via phone , agrees with plan of management Problem List - Problems (1) with 37 or more completed weeks gestation Code(s): WND5783 - (2) Cholestasis during Code(s): O26.619 - LIVER AND BILIARY TRACT DISORD IN , UNSP TRIMESTER; K83.1 - OBSTRUCTION OF BILE DUCT (3) Large for gestational age fetus Code(s): FOC8102 - (4) Obesity Code(s): E66.9 - OBESITY, UNSPECIFIED Qualifiers: Obesity type: due to excess calories (5) Grand multipara in labor Code(s): O09.40 - SUPERVISION OF W GRAND MULTIPARITY, UNSP TRIMESTER Qualifiers: Trimester: third trimester Qualified Code(s): O09.43 - Supervision of with grand multiparity, third trimester
[2018-05-23] MEDS ORDERED: OXYTOCIN 30 UNITS in 0.9% NS 30 UNIT/500 ML INFUS.BAG IVPB SCH (10:45)
[2018-05-23] MEDS ORDERED: BUTORPHANOL TARTRATE 1 MG/ML VIAL IVPUSH PRN (11:36)
[2018-05-23] MEDS ORDERED: PROMETHAZINE HCL 25 MG/1 ML VIAL IVPB PRN (11:37)
--- NOTE | 2018-05-23 11:41 | PN ---
Progress Note (short form) - Note Progress Note: Patient re-evaluated. She's lying comfortably in bed. Pitocin, ampicilin and IVF on board. FHR : Reassuring [place] : Irregular contractions VE : /-2 AROM A/P : 38 weeks gestation Urinary tract infection Continue Pitocin Continue IV ampicilin Continue IVF Anticipate
[2018-05-23] MEDS ORDERED: OXYTOCIN 20 UNITS in 0.9% NS 20 UNIT/1,000 ML INFUS.BAG IV ONE ×2 (12:40→14:18)
[2018-05-23] MEDS: OXYTOCIN 20 UNITS in 0.9% NS 20 UNIT/1,000 ML INFUS.BAG IV SCH ×2 (13:10→14:20)
[2018-05-23] MEDS ORDERED: BENZOCAINE 20% 57 GM BOTTLE TP PRN (13:14)
[2018-05-23] MEDS ORDERED: BENZOCAINE 28 GM HEMORRHOIDAL OINTMENT TP PRN (13:14)
[2018-05-23] MEDS ORDERED: WITCH HAZEL 50% (TUCKS) 40 PAD/JAR PAD TP PRN (13:14)
[2018-05-23] MEDS ORDERED: METHYLERGONOVINE MALEATE 0.2 MG/1 ML AMP IM PRN (13:14)
[2018-05-23] MEDS ORDERED: BISACODYL 10 MG SUPP.RECT RC PRN (13:14)
--- NOTE | 2018-05-23 13:19 | PN ---
Delivery - Delivery Vaginal Delivery: Spontaneous Type of Anesthesia: Local Episiotomy/Laceration: None EBL (cc): 500 Remarks - Remarks Remarks: Normal spontaneous vaginal delivery of a live infant boy over intact perineum. Nose / Oropharynx suctioned @ perineum. Cord clamped and cut. Baby handed to awaiting nurse clinical. Placenta expelled spontaneously intact. Mother in stable condition.
[2018-05-23] MEDS: ACETAMINOPHEN 325 MG TABLET (FP) PO PRN ×2 (14:20→21:16)
[2018-05-23] MEDS ORDERED: ALBUTEROL SO4 0.083% IH SOL 2.5 MG/3 ML VIAL.NEB. NEB ONE (14:48)
[2018-05-23] MEDS ORDERED: SODIUM CHLORIDE 1,000 ML IV STA (14:49)
--- NOTE | 2018-05-23 15:22 | RAPID ---
Physical Examination Vital Signs: Vital Signs Temperature 100.6 F H 05/23/18 14:15 Pulse Rate 122 H 05/23/18 14:15 Respiratory Rate 20 05/23/18 14:15 Blood Pressure 109/68 05/23/18 14:15 O2 Sat by Pulse Oximetry (%) 98 05/23/18 14:30 Labs: CBC, BMP 05/23/18 00:15 05/23/18 00:15 Rapid Response - Rapid Response Assessment: Rapid response called at 2:42pm. Patient was reporting to have shortness of breath and chest pain. As per nursing , patient delivered via NSD at around 1 pm. Patient also had tachycardia and fever of 100.6. Patient is being treated for pyelonephritis/UTI with ampicillin and gentamicin. As per nursing, patient was already febrile since this morning. UA: 1421 WBC, 3+ LE VS: BP 120/73 SC 117 RR 18, 97% on 2L NC, Temp 100.6 General: awake, alert, looking tired with pallor, on 2L NC Lungs: +scattered wheezes bilaterally Heart: +midsternal chest tenderness on palpation, tachycardic, normal S1/S2, no murmurs Ext: +2 pulses, varicose veins b/l LE, no tenderness on palpation of LE Sepsis likely 2/2 to UTI/pyelonephritis, rule out DVT/PE, ACS, endometritis Blood cultures and urine cultures done this morning. Will follow-up. Duplex bilateral LE Albuterol neb once CBC, CMP Trop, EKG IV NS boluses Will start Rocephin 2gm daily
[2018-05-23] MEDS ORDERED: CEFTRIAXONE 2 GM in DEXTROSE 5%-WATER - 50 ML IVPB SCH (15:45)
[2018-05-23] MEDS ORDERED: CEFTRIAXONE 2 GM in DEXTROSE 5%-WATER 100 ML IVPB SCH (16:18)
[2018-05-23] MEDS: CEFTRIAXONE 2 GM in DEXTROSE 5%-WATER 100 ML IVPB SCH (16:44)
--- NOTE | 2018-05-23 18:00 | EKG ---
Test Reason : Blood Pressure : / mmHG Vent. Rate : 105 BPM Atrial Rate : 105 BPM P-R Int : 126 ms QRS Dur : 080 ms QT Int : 316 ms P-R-T Axes : 014 019 013 degrees QTc Int : 417 ms SINUS TACHYCARDIA OTHERWISE NORMAL ECG WHEN COMPARED WITH ECG OF 20-JUN-2003 21:36, NO SIGNIFICANT CHANGE WAS FOUND Confirmed by DEEPAK GODWIN MD ([id number]) on 05/23/2018 6:00:13 PM Referred By: DIANNE CHAVEZ Confirmed By:DEEPAK GODWIN MD
[2018-05-23 18:10] LABS: ALBUMIN 1.6 g/dl (3.4-5.0); ALK PHOS 155 U/L (45-117); ANION GAP 8 MMOL/L (8-16); BLOOD UREA NITROGEN 7 mg/dL (7-18); CALCIUM 7.2 mg/dL (8.5-10.1); CHLORIDE 110 mmol/L (98-107); CO2 19 mmol/L (21-32); CREATININE 0.8 mg/dL (0.55-1.3); GLUCOSE,RANDOM 158 mg/dL (74-106); POTASSIUM 3.2 mmol/L (3.5-5.1); SGOT/AST 21 U/L (15-37); SGPT/ALT 19 U/L (13-61); SODIUM 137 mmol/L (136-145)
[2018-05-23] MEDS ORDERED: POTASSIUM CHLORIDE TABS 20 MEQ TABLET.ER (FP) PO ONE ×2 (18:28→19:15)
[2018-05-23 18:36] LABS: BASO % 0.3 % (0-2.0); HEMATOCRIT 27.6 % (32.4-45.2); HEMOGLOBIN 9.8 GM/dL (10.7-15.3); LYMPH % 11.2 % (8-40); MCH 32.3 pg (25.7-33.7); MCHC 35.7 g/dl (32.0-36.0); MEAN CELL VOLUME 90.7 fl (80-96); MEAN PLT VOLUME 8.6 fl (7.5-11.1); MONO % 4.5 % (3.8-10.2); PLATELET COUNT 160 K/MM3 (134-434); RBC 3.04 M/mm3 (3.60-5.2); RDW 14.7 % (11.6-15.6); WHITE BLOOD COUNT 9.7 K/mm3 (4.0-10.0)
[2018-05-23] MEDS: FERROUS SO4 325 MG TABLET (FP) PO SCH (21:16)
[2018-05-23] MEDS: SENNOSIDES/DOCUSATE COMBO (SENNA PLUS) TABLET (UD) PO PRN (21:19)
[2018-05-23] MEDS: IBUPROFEN 600 MG TABLET (FP) PO PRN (21:19)
[2018-05-24] MEDS ORDERED: SODIUM CHLORIDE 100 ML IVPB ONE ×6 (02:17→22:21)
[2018-05-24] MEDS ORDERED: AMPICILLIN SODIUM 1 GM VIAL ONE ×6 (02:17→22:22)
[2018-05-24] MEDS: AMPICILLIN - 1 GM in SODIUM CHLORIDE 100 ML IVPB SCH ×6 (02:43→22:27)
--- NOTE | 2018-05-24 06:08 | PN ---
Post Progress Note - Subjective Subjective: No acute events overnight, however, did have temp 101.3 at 9pm. Pain controlled. No SOB/chest pain. Post Day: 1 Type of Delivery: Vital Signs: Vital Signs Temperature 99.1 F 05/24/18 00:40 Pulse Rate 104 H 05/24/18 00:40 Respiratory Rate 18 05/24/18 00:40 Blood Pressure 100/55 L 05/24/18 00:40 O2 Sat by Pulse Oximetry (%) 97 05/23/18 20:00 Uterus: Yes: Fundus Firm, Fundus below umbilicus Abdomen/GI: Yes: Abdomen soft Lochia: Yes: Rubra Lochia, amount: Small Extremities: Yes: Calves non-tender Perineum: Yes: Intact Activity: Ambulating (No events overnight. Pain controlled) - Labs Labs: CBC WBC 9.7 K/mm3 (4.0-10.0) 05/23/18 18:00 RBC 3.04 M/mm3 (3.60-5.2) L 05/23/18 18:00 Hgb 9.8 GM/dL (10.7-15.3) L 05/23/18 18:00 Hct 27.6 % (32.4-45.2) L D 05/23/18 18:00 MCV 90.7 fl (80-96) 05/23/18 18:00 MCH 32.3 pg (25.7-33.7) 05/23/18 18:00 MCHC 35.7 g/dl (32.0-36.0) 05/23/18 18:00 RDW 14.7 % (11.6-15.6) 05/23/18 18:00 Plt Count 160 K/MM3 (134-434) 05/23/18 18:00 MPV 8.6 fl (7.5-11.1) 05/23/18 18:00 Absolute Neuts (auto) 8.1 K/mm3 (1.5-8.0) H 05/23/18 18:00 Neutrophils % 84.0 % (42.8-82.8) H 05/23/18 18:00 Lymphocytes % 11.2 % (8-40) 05/23/18 18:00 Monocytes % 4.5 % (3.8-10.2) 05/23/18 18:00 Eosinophils % 0.0 % (0-4.5) D 05/23/18 18:00 Basophils % 0.3 % (0-2.0) 05/23/18 18:00 Nucleated RBC % 0 % (0-0) 05/23/18 18:00 Assessment/Plan 32yo [id number] s/p , PPD#1 Routine PP care Labs pending for urine studies Urine showed nitrites and large leuks, treated for Pyelo with Gent while in labor. Pt transitioned to Amp after being febrile post delivery. Had rapid response one hour after delivery for SOB. Started on Rocephin by rapid response team. Tested for flu, negative Will continue Rocephin while awaiting sensitivities and then transition over to po meds Continue inpatient care till at least 24 hrs afebrile Kasia Cordero MD
[2018-05-24 06:33] LABS: BASO % 0.6 % (0-2.0); EOS % 0.8 % (0-4.5); HEMATOCRIT 27.8 % (32.4-45.2); HEMOGLOBIN 9.3 GM/dL (10.7-15.3); LYMPH % 13.9 % (8-40); MCH 30.6 pg (25.7-33.7); MCHC 33.4 g/dl (32.0-36.0); MEAN CELL VOLUME 91.5 fl (80-96); MEAN PLT VOLUME 8.2 fl (7.5-11.1); MONO % 6.5 % (3.8-10.2); NEUT % 78.2 % (42.8-82.8); PLATELET COUNT 157 K/MM3 (134-434); RBC 3.03 M/mm3 (3.60-5.2); RDW 14.5 % (11.6-15.6); WHITE BLOOD COUNT 8.2 K/mm3 (4.0-10.0)
--- NOTE | 2018-05-24 08:22 | PN ---
Teaching Attending Note Name of Resident: Francia Vázquez ATTENDING PHYSICIAN STATEMENT I saw and evaluated the patient. I reviewed the resident's note and discussed the case with the resident. I agree with the resident's findings and plan as documented. SUBJECTIVE: Patient is feeling better with no acute distress, no fever now, no shortness of breath. no nausea or vomiting. OBJECTIVE: Initial Vital Signs Temp Pulse Resp BP 98.0 F 124 H 18 117/75 05/22/18 23:45 05/22/18 23:45 05/22/18 23:45 05/22/18 23:45 Vital Signs today Temperature 96.7 F L 05/24/18 06:00 Pulse Rate 79 05/24/18 06:00 Respiratory Rate 18 05/24/18 06:00 Blood Pressure 103/54 L 05/24/18 06:00 O2 Sat by Pulse Oximetry (%) 97 05/23/18 20:00 GENERAL: Awake, alert, and fully oriented, in no acute distress. HEAD: Normal with no signs of trauma. EYES: Pupils equal, round and reactive to light, extraocular movements intact, sclera anicteric, conjunctiva clear. EARS, NOSE, THROAT: Ears normal, oropharynx clear without exudates. Moist mucous membranes. NECK: Normal range of motion, supple without lymphadenopathy, JVD, or masses. LUNGS: Breath sounds equal, clear to auscultation bilaterally. No wheezes, and no crackles. No accessory muscle use. HEART: Regular rate and rhythm, normal S1 and S2 positive, without murmur, rub or gallop. ABDOMEN: Soft, nontender, not distended, normoactive bowel sounds, no guarding, no rebound, no masses. MUSCULOSKELETAL: Normal range of motion at all joints. No bony deformities or tenderness. No CVA tenderness. EXTREMITIES: 2+ pulses, warm, well-perfused. No cyanosis. No clubbing. No peripheral edema. NEUROLOGICAL: Cranial nerves II-XII intact. Normal speech. Normal gait. PSYCHIATRIC: Cooperative. Good eye contact. Appropriate mood and affect. SKIN: Warm, dry, normal turgor, no rashes or lesions noted CBCD WBC 8.2 K/mm3 (4.0-10.0) 05/24/18 05:00 RBC 3.03 M/mm3 (3.60-5.2) L 05/24/18 05:00 Hgb 9.3 GM/dL (10.7-15.3) L 05/24/18 05:00 Hct 27.8 % (32.4-45.2) L 05/24/18 05:00 MCV 91.5 fl (80-96) 05/24/18 05:00 MCHC 33.4 g/dl (32.0-36.0) 05/24/18 05:00 RDW 14.5 % (11.6-15.6) 05/24/18 05:00 Plt Count 157 K/MM3 (134-434) 05/24/18 05:00 MPV 8.2 fl (7.5-11.1) 05/24/18 05:00 CMP Sodium 137 mmol/L (136-145) 05/23/18 16:00 Potassium 3.2 mmol/L (3.5-5.1) L 05/23/18 16:00 Chloride 110 mmol/L (98-107) H 05/23/18 16:00 Carbon Dioxide 19 mmol/L (21-32) L 05/23/18 16:00 Anion Gap 8 MMOL/L (8-16) 05/23/18 16:00 BUN 7 mg/dL (7-18) 05/23/18 16:00 Creatinine 0.8 mg/dL (0.55-1.3) 05/23/18 16:00 Creat Clearance w eGFR > 60 (>60) 05/23/18 16:00 Random Glucose 158 mg/dL (74-106) H 05/23/18 16:00 Calcium 7.2 mg/dL (8.5-10.1) L 05/23/18 16:00 Total Bilirubin 2.0 mg/dL (0.2-1) H 05/23/18 16:00 AST 21 U/L (15-37) 05/23/18 16:00 ALT 19 U/L (13-61) 05/23/18 16:00 Alkaline Phosphatase 155 U/L (45-117) H 05/23/18 16:00 Total Protein 5.0 g/dl (6.4-8.2) L 05/23/18 16:00 Albumin 1.6 g/dl (3.4-5.0) L 05/23/18 16:00 CARDIAC ENZYMES Troponin I < 0.02 ng/ml (0.00-0.05) 05/23/18 16:00 Current Medications Generic Name Dose Route Start Last Admin Trade Name Nara PRN Reason Stop Dose Admin Acetaminophen 650 mg 05/23/18 13:14 05/23/18 21:16 Tylenol - PO 650 mg Q3H PRN Administration PAIN Benzocaine 1 spray 05/23/18 13:14 Americaine 20% [place] - TP PRN PRN PAIN Benzocaine 1 applic 05/23/18 13:14 [place]aine Ointment - TP PRN PRN PAIN Bisacodyl 10 mg 05/23/18 13:14 Dulcolax Suppository - RC PRN PRN CONSTIPATION Diphtheria/Tetanus/Acell Pertussis 0.5 ml 05/24/18 12:00 Boostrix - IM 05/24/18 12:01 .ONCE ONE Ferrous Sulfate 325 mg 05/23/18 22:00 05/23/18 21:16 Feosol - PO 325 mg BID LEANNE Administration Ampicillin Sodium 1 gm/ Sodium 100 mls @ 200 mls/hr 05/23/18 06:45 05/24/18 06:37 Chloride IVPB 200 mls/hr Q4H LEANNE Administration Oxytocin/Sodium Chloride 20 unit in 1,000 mls @ 125 mls/hr 05/23/18 13:15 07/10 14:20 Normal Saline+20 Units Oxytocin - IV 125 mls/hr ASDIR LEANNE Administration Ceftriaxone Sodium 2 gm/ 100 mls @ 100 mls/hr 05/23/18 16:30 05/23/18 16:44 Dextrose IVPB 100 mls/hr DAILY LEANNE Administration Protocol Ibuprofen 600 mg 05/23/18 13:14 05/23/18 21:19 Motrin - PO 600 mg Q4H PRN Administration PAIN Influenza Virus Vaccine Quadrival 60 mcg 05/24/18 12:00 Fluarix Quad [id number] Syringe IM 05/24/18 12:01 ONCE ONE Methylergonovine Maleate 0.2 mg 05/23/18 13:14 Methergine Injection - IM Q4H PRN EXCESSIVE BLEEDING (L&D) Multivit/Folic Acid/Iron 1 tab 05/24/18 10:00 Vitamins (Sjr) - PO DAILY LEANNE Senna/Docusate Sodium 2 tablet 05/24/18 22:00 05/23/18 21:19 Pericolace - PO 2 tablet HS PRN Administration CONSTIPATION Witch Brianna/Glycerin 1 pad 05/23/18 13:14 Tucks Pads - TP PRN PRN PAIN Home Medications Medication Instructions Recorded Vitamins (Sjr) - 1 tab PO DAILY tablet 08/25/16 Ursodiol [Actigal] 300 mg PO BID 04/24/18 Ferrous Sulfate [Iron] 325 mg PO DAILY 05/18/18 Microbiology 05/23/18 02:20 Blood - Peripheral Venous Blood Culture - Preliminary NO GROWTH OBTAINED AFTER 24 HOURS, INCUBATION TO CONTINUE FOR 4 DAYS. 05/23/18 02:20 Blood - Peripheral Venous Blood Culture - Preliminary NO GROWTH OBTAINED AFTER 24 HOURS, INCUBATION TO CONTINUE FOR 4 DAYS. Urine Test Results Urine Color Hanane 05/23/18 02:20 Urine Appearance Cloudy 05/23/18 02:20 Urine pH 6.0 (5.0-8.0) 05/23/18 02:20 Ur Specific Mccammon 1.014 (1.010-1.035) 05/23/18 02:20 Urine Protein 2+ (NEGATIVE) H 05/23/18 02:20 Urine Glucose (UA) 1+ (NEGATIVE) H 05/23/18 02:20 Urine Ketones Trace (NEGATIVE) H 05/23/18 02:20 Urine Blood 2+ (NEGATIVE) H 05/23/18 02:20 Urine Nitrite Positive (NEGATIVE) 05/23/18 02:20 Urine Bilirubin Negative (<2.0 mg/dL) 05/23/18 02:20 Ur Leukocyte Esterase 3+ (NEGATIVE) H 05/23/18 02:20 Urine Bacteria Rare /hpf (NONE SEEN) 05/23/18 02:20 ASSESSMENT AND PLAN: Patient is a 32 year old female, , presented with fever and tachycardia for 1 day. Patient delivered via NVD yesterday, with no complications. About an hour after, a rapid response was called as patient had an elevated temp of 100.6 and HR of 117. Hospitalist team arrived. Patient was started on # day #1 normal vaginal delivery; further care by OBGYN #acute UTI/pylonehritis : continue iv fluid, continue with IV Rocephin 2g IV daily ,will wait for the sensitivity. Patient is s/p IV gentamycin and on IV ampicillin now. as per OBGYN. waiting for sensitivity of the culture. # Acute hypokalemia will replete DVT Px: early ambulation. will follow the patient with you.
[2018-05-24] MEDS ORDERED: SODIUM CHLORIDE 1,000 ML IV SCH (08:45)
[2018-05-24] MEDS: FERROUS SO4 325 MG TABLET (FP) PO SCH ×2 (09:05→21:17)
[2018-05-24] MEDS: PRENATAL VITAMINS W/ FOLIC ACID TABLET (FP) PO SCH (09:05)
[2018-05-24] MEDS: CEFTRIAXONE 2 GM in DEXTROSE 5%-WATER 100 ML IVPB SCH (09:05)
[2018-05-24] MEDS ORDERED: SODIUM CHLORIDE 500 ML IV STA (10:07)
[2018-05-24] MEDS: IBUPROFEN 600 MG TABLET (FP) PO PRN ×2 (11:50→21:15)
[2018-05-24] MEDS: ACETAMINOPHEN 325 MG TABLET (FP) PO PRN ×2 (11:51→21:16)
[2018-05-24] MEDS ORDERED: DIPHTH,PERTUSS(ACELL),TET 0.5 ML DISP.SYRIN IM ONE (12:00)
--- NOTE | 2018-05-24 14:19 | CONSULT ---
Consultation: REQUESTING PROVIDER:Dr. Bhatt CONSULT REQUEST: We have been asked to medically evaluate this patient for UTI/ pyelonephritis. HISTORY OF PRESENT ILLNESS: Patient is a 32 year old female, , presented with fever and tachycardia for 1 day. Patient delivered via NSD yesterday, with no complications. About an hour after, a rapid response was called as patient had an elevated temp of 100.6 and HR of 117. Hospitalist team arrived. Patient was reporting shortness of breath and chest pain. Patient was given Albuterol neb. CBC, CMP, Trops and EKG done were unremarkable. It was also known that patient had a urinary tract infection. Blood cultures and urine cultures pending. Patient was started on Rocephin 2gm daily, IV fluids also given. Overnight, patient had an episode of fever with temp 101.3 at around 9pm, but remained afebrile the rest of the night. Today patient reports improvement of symptoms. She also reports abdominal pain but denies headache, dizziness, nausea, vomiting, chest pain, SOB, palpitations , diarrhea, dysuria, hematuria. She was started on regular diet today, and tolerated it well. REVIEW OF SYSTEMS: CONSTITUTIONAL: Absent: fever, chills, diaphoresis, generalized weakness, malaise, loss of appetite, weight change HEENT: Absent: rhinorrhea, nasal congestion, throat pain, throat swelling, difficulty swallowing, mouth swelling, ear pain, eye pain, visual changes CARDIOVASCULAR: Absent: chest pain, syncope, palpitations, irregular heart rate, lightheadedness , peripheral edema RESPIRATORY: Absent: cough, shortness of breath, dyspnea with exertion, orthopnea, wheezing, stridor, hemoptysis GASTROINTESTINAL: Absent: abdominal pain, abdominal distension, nausea, vomiting, diarrhea, constipation, melena, hematochezia GENITOURINARY: Absent: dysuria, frequency, urgency, hesitancy, hematuria, flank pain, genital pain MUSCULOSKELETAL: Absent: myalgia, arthralgia, joint swelling, back pain, neck pain SKIN: Absent: rash, itching, pallor HEMATOLOGIC/IMMUNOLOGIC: Absent: easy bleeding, easy bruising, lymphadenopathy, frequent infections ENDOCRINE: Absent: unexplained weight gain, unexplained weight loss, heat intolerance, cold intolerance NEUROLOGIC: Absent: headache, focal weakness or paresthesias, dizziness, unsteady gait, seizure, mental status changes, bladder or bowel incontinence PSYCHIATRIC: Absent: anxiety, depression, suicidal or homicidal ideation, hallucinations. PHYSICAL EXAMINATION Vital Signs - 24 hr 05/23/18 05/23/18 05/23/18 14:15 14:30 14:50 Temperature 100.6 F H 98.4 F Pulse Rate 122 H 121 H Respiratory 20 24 H Rate Blood Pressure 109/68 120/73 O2 Sat by Pulse 99 98 97 Oximetry (%) 05/23/18 05/23/18 05/23/18 17:53 17:54 19:15 Temperature 97.8 F 98.3 F Pulse Rate 110 H 110 H Respiratory 22 H 18 Rate Blood Pressure 104/56 L 102/56 L O2 Sat by Pulse 97 Oximetry (%) 05/23/18 05/23/18 05/24/18 20:00 21:23 00:40 Temperature 101.3 F H 99.1 F Pulse Rate 104 H Respiratory 18 Rate Blood Pressure 100/55 L O2 Sat by Pulse 97 Oximetry (%) 05/24/18 05/24/18 05/24/18 06:00 07:45 11:40 Temperature 96.7 F L 97.5 F L 97.9 F Pulse Rate 79 84 101 H Respiratory 18 18 18 Rate Blood Pressure 103/54 L 85/49 L 129/67 O2 Sat by Pulse Oximetry (%) GENERAL: Awake, alert, and fully oriented, in no acute distress. EYES: PERRLA, EOMI, sclera anicteric, pale palpebral conjunctivae. NECK: Soft, supple, trachea midline. LUNGS: Breath sounds equal, clear to auscultation bilaterally. HEART: Regular rate and rhythm, normal S1 and S2 without murmur, rub or gallop. ABDOMEN: +suprapubic tenderness, nondistended, NABS MUSCULOSKELETAL: Normal range of motion at all joints. No bony deformities or tenderness. UPPER EXTREMITIES: 2+ pulses, warm, well-perfused. LOWER EXTREMITIES: 2+ pulses, warm, well-perfused. No calf tenderness. No peripheral edema. NEUROLOGICAL: Cranial nerves II-XII intact. Normal speech. Gait not observed. PSYCHIATRIC: Cooperative. Good eye contact. Appropriate mood and affect. SKIN: Warm, dry, normal turgor, no rashes or lesions noted. Laboratory Results - last 24 hr 05/23/18 05/23/18 05/23/18 16:00 16:00 18:00 WBC 9.7 RBC 3.04 L Hgb 9.8 L Hct 27.6 L D MCV 90.7 MCH 32.3 MCHC 35.7 RDW 14.7 Plt Count 160 MPV 8.6 Absolute Neuts (auto) 8.1 H Neutrophils % 84.0 H Lymphocytes % 11.2 Monocytes % 4.5 Eosinophils % 0.0 D Basophils % 0.3 Nucleated RBC % 0 Sodium 137 Potassium 3.2 L Chloride 110 H Carbon Dioxide 19 L Anion Gap 8 BUN 7 Creatinine 0.8 Creat Clearance w eGFR > 60 Random Glucose 158 H Calcium 7.2 L Total Bilirubin 2.0 H AST 21 ALT 19 Alkaline Phosphatase 155 H Troponin I < 0.02 Total Protein 5.0 L Albumin 1.6 L 05/24/18 05:00 WBC 8.2 RBC 3.03 L Hgb 9.3 L Hct 27.8 L MCV 91.5 MCH 30.6 MCHC 33.4 RDW 14.5 Plt Count 157 MPV 8.2 Absolute Neuts (auto) 6.4 Neutrophils % 78.2 Lymphocytes % 13.9 D Monocytes % 6.5 Eosinophils % 0.8 D Basophils % 0.6 Nucleated RBC % 0 Sodium Potassium Chloride Carbon Dioxide Anion Gap BUN Creatinine Creat Clearance w eGFR Random Glucose Calcium Total Bilirubin AST ALT Alkaline Phosphatase Troponin I Total Protein Albumin Active Medications Generic Name Dose Route Start Last Admin Trade Name Freq PRN Reason Stop Dose Admin Acetaminophen 650 mg 05/23/18 13:14 05/24/18 11:51 Tylenol - PO 650 mg Q3H PRN Administration PAIN Benzocaine 1 spray 05/23/18 13:14 Americaine 20% [place] - TP PRN PRN PAIN Benzocaine 1 applic 05/23/18 13:14 Americaine Ointment - TP PRN PRN PAIN Bisacodyl 10 mg 05/23/18 13:14 Dulcolax Suppository - RC PRN PRN CONSTIPATION Ferrous Sulfate 325 mg 05/23/18 22:00 05/24/18 09:05 Feosol - PO 325 mg BID LEANNE Administration Ampicillin Sodium 1 gm/ Sodium 100 mls @ 200 mls/hr 05/23/18 06:45 05/24/18 14:06 Chloride IVPB 200 mls/hr Q4H LEANNE Administration Oxytocin/Sodium Chloride 20 unit in 1,000 mls @ 125 mls/hr 05/23/18 13:15 07/10 14:20 Normal Saline+20 Units Oxytocin - IV 125 mls/hr ASDIR LEANNE Administration Ceftriaxone Sodium 2 gm/ 100 mls @ 100 mls/hr 05/23/18 16:30 05/24/18 09:05 Dextrose IVPB 100 mls/hr DAILY LEANNE Administration Protocol Ibuprofen 600 mg 05/23/18 13:14 05/24/18 11:50 Motrin - PO 600 mg Q4H PRN Administration PAIN Methylergonovine Maleate 0.2 mg 05/23/18 13:14 Methergine Injection - IM Q4H PRN EXCESSIVE BLEEDING (L&D) Multivit/Folic Acid/Iron 1 tab 05/24/18 10:00 05/24/18 09:05 Vitamins (Sjr) - PO 1 tab DAILY LEANNE Administration Senna/Docusate Sodium 2 tablet 05/24/18 22:00 05/23/18 21:19 Pericolace - PO 2 tablet HS PRN Administration CONSTIPATION Witch Brianna/Glycerin 1 pad 05/23/18 13:14 Tucks Pads - TP PRN PRN PAIN ASSESSMENT/PLAN: Patient is a 32 year old female, , presented with fever and tachycardia for 1 day. #Sepsis 2/2 Urinary tract infection: improving -Patient had BP <90/60 this morning, IV NS 500ml bolus given. -UA: WBC 1421, LE 3+ -Urine culture growing lactose fermenting GNB -Will await sensitivities -Continue Ceftriaxone 2gm daily -IV NS boluses PRN -Blood cultures - negative #POD1: normal vaginal delivery -continue present management as per OB -pain management #FEN -Not on any standing fluids. -Hypokalemia, will replete -Routine bmp monitoring -Regular diet. #Prophylaxis -TEDs, both legs #Disposition -full code Dispo: We will continue to follow the patient. Thank you for this consultative opportunity. Visit type - Emergency Visit Emergency Visit: Yes ED Registration Date: 05/22/18 Care time: The patient presented to the Emergency Department on the above date and was hospitalized for further evaluation of their emergent condition. - New Patient This patient is new to me today: Yes Date on this admission: 05/24/18 - Critical Care Critical Care patient: No
[2018-05-24] MEDS ORDERED: ONDANSETRON 4 MG/2 ML VIAL IVPB PRN (21:02)
[2018-05-24] MEDS ORDERED: FLU VACCINE QUAD 60 MCG/0.5 ML (MDV 18-19) IM ONE (22:00)
[2018-05-25] MEDS ORDERED: AMPICILLIN SODIUM 1 GM VIAL ONE ×2 (02:23→05:43)
[2018-05-25] MEDS ORDERED: SODIUM CHLORIDE 100 ML IVPB ONE ×2 (02:23→05:43)
[2018-05-25] MEDS: AMPICILLIN - 1 GM in SODIUM CHLORIDE 100 ML IVPB SCH ×2 (02:25→06:01)
[2018-05-25] MEDS: IBUPROFEN 600 MG TABLET (FP) PO PRN ×3 (02:31→22:50)
[2018-05-25] MEDS: ACETAMINOPHEN 325 MG TABLET (FP) PO PRN ×3 (02:31→22:49)
[2018-05-25 07:17] LABS: BASO % 0.4 % (0-2.0); EOS % 1.3 % (0-4.5); HEMOGLOBIN 9.3 GM/dL (10.7-15.3); LYMPH % 16.9 % (8-40); MCH 30.7 pg (25.7-33.7); MCHC 33.3 g/dl (32.0-36.0); MEAN PLT VOLUME 8.4 fl (7.5-11.1); MONO % 5.1 % (3.8-10.2); NEUT % 76.3 % (42.8-82.8); PLATELET COUNT 185 K/MM3 (134-434); RBC 3.04 M/mm3 (3.60-5.2); RDW 14.4 % (11.6-15.6); WHITE BLOOD COUNT 6.5 K/mm3 (4.0-10.0)
[2018-05-25 08:49] LABS: ANION GAP 7 MMOL/L (8-16); BLOOD UREA NITROGEN 9 mg/dL (7-18); CALCIUM 8.4 mg/dL (8.5-10.1); CHLORIDE 110 mmol/L (98-107); CO2 22 mmol/L (21-32); CREATININE 0.6 mg/dL (0.55-1.3); GLUCOSE,RANDOM 114 mg/dL (74-106); POTASSIUM 4.2 mmol/L (3.5-5.1); SODIUM 139 mmol/L (136-145)
[2018-05-25] MEDS: FERROUS SO4 325 MG TABLET (FP) PO SCH ×2 (09:15→21:06)
[2018-05-25] MEDS: CEFTRIAXONE 2 GM in DEXTROSE 5%-WATER 100 ML IVPB SCH (09:15)
[2018-05-25] MEDS: PRENATAL VITAMINS W/ FOLIC ACID TABLET (FP) PO SCH (09:15)
--- NOTE | 2018-05-25 09:47 | PN ---
Progress Note (short form) - Note Progress Note: ppd 3 s/p , pyelo, no c/o feels much better, no flank pain , afebrile CBC, BMP 05/25/18 05:15 05/25/18 05:15 Last Vital Signs Temp Pulse Resp BP Pulse Ox 98.0 F 73 18 104/63 98 05/25/18 06:00 05/25/18 06:00 05/25/18 06:00 05/25/18 06:00 05/24/18 21:00 abdomen soft, uterus firm, non tender , no cva lochia mild no calf tenderness impression , afebrile for 24 hrs, pulse normal urine c/s pending plan d/c ampicillin, cont rocephin today , d/c home in am on po antibiotics pending c/s Problem List - Problems (1) with 37 or more completed weeks gestation Code(s): AAK8286 - (2) Cholestasis during Code(s): O26.619 - LIVER AND BILIARY TRACT DISORD IN , UNSP TRIMESTER; K83.1 - OBSTRUCTION OF BILE DUCT (3) Large for gestational age fetus Code(s): WXN1794 - (4) Obesity Code(s): E66.9 - OBESITY, UNSPECIFIED Qualifiers: Obesity type: due to excess calories (5) Grand multipara in labor Code(s): O09.40 - SUPERVISION OF W GRAND MULTIPARITY, UNSP TRIMESTER Qualifiers: Trimester: third trimester Qualified Code(s): O09.43 - Supervision of with grand multiparity, third trimester
--- NOTE | 2018-05-25 12:20 | PN ---
Physical Exam: SUBJECTIVE: Patient seen and examined at bedside this morning. No acute events overnight. PAtient denies fever, chills, nausea, vomiting, chest pain, SOB, palpitations, abdominal pain, diarrhea. Patient reports having bowel movements since yesterday. OBJECTIVE: Vital Signs Temperature 97.6 F 05/25/18 07:40 Pulse Rate 72 05/25/18 07:40 Respiratory Rate 18 05/25/18 07:40 Blood Pressure 113/70 05/25/18 07:40 O2 Sat by Pulse Oximetry (%) 98 05/25/18 07:40 GENERAL: Awake, alert, and fully oriented, in no acute distress. EYES: PERRLA, EOMI, sclera anicteric, pale palpebral conjunctivae. NECK: Soft, supple, trachea midline. LUNGS: Breath sounds equal, clear to auscultation bilaterally. HEART: Regular rate and rhythm, normal S1 and S2 without murmur, rub or gallop. ABDOMEN: +suprapubic tenderness, nondistended, NABS MUSCULOSKELETAL: Normal range of motion at all joints. No bony deformities or tenderness. UPPER EXTREMITIES: 2+ pulses, warm, well-perfused. LOWER EXTREMITIES: 2+ pulses, warm, well-perfused. No calf tenderness. No peripheral edema. NEUROLOGICAL: Cranial nerves II-XII intact. Normal speech. Gait not observed. PSYCHIATRIC: Cooperative. Good eye contact. Appropriate mood and affect. SKIN: Warm, dry, normal turgor, no rashes or lesions noted. Laboratory Results - last 24 hr 05/25/18 05/25/18 05:15 05:15 WBC 6.5 RBC 3.04 L Hgb 9.3 L Hct 28.0 L MCV 92.0 MCH 30.7 MCHC 33.3 RDW 14.4 Plt Count 185 MPV 8.4 Absolute Neuts (auto) 5.0 Neutrophils % 76.3 Lymphocytes % 16.9 D Monocytes % 5.1 Eosinophils % 1.3 Basophils % 0.4 Nucleated RBC % 0 Sodium 139 Potassium 4.2 Chloride 110 H Carbon Dioxide 22 Anion Gap 7 L BUN 9 Creatinine 0.6 Creat Clearance w eGFR > 60 Random Glucose 114 H Calcium 8.4 L Active Medications Generic Name Dose Route Start Last Admin Trade Name Freq PRN Reason Stop Dose Admin Acetaminophen 650 mg 05/23/18 13:14 05/25/18 02:31 Tylenol - PO 650 mg Q3H PRN Administration PAIN Benzocaine 1 spray 05/23/18 13:14 Americaine 20% [place] - TP PRN PRN PAIN Benzocaine 1 applic 05/23/18 13:14 Americaine Ointment - TP PRN PRN PAIN Bisacodyl 10 mg 05/23/18 13:14 Dulcolax Suppository - RC PRN PRN CONSTIPATION Ferrous Sulfate 325 mg 05/23/18 22:00 05/25/18 09:15 Feosol - PO 325 mg BID LEANNE Administration Oxytocin/Sodium Chloride 20 unit in 1,000 mls @ 125 mls/hr 05/23/18 13:15 07/10 14:20 Normal Saline+20 Units Oxytocin - IV 125 mls/hr ASDIR LEANNE Administration Ceftriaxone Sodium 2 gm/ 100 mls @ 100 mls/hr 05/23/18 16:30 05/25/18 09:15 Dextrose IVPB 100 mls/hr DAILY LEANNE Administration Protocol Ibuprofen 600 mg 05/23/18 13:14 05/25/18 02:31 Motrin - PO 600 mg Q4H PRN Administration PAIN Methylergonovine Maleate 0.2 mg 05/23/18 13:14 Methergine Injection - IM Q4H PRN EXCESSIVE BLEEDING (L&D) Ondansetron HCl 4 mg 05/24/18 21:02 05/24/18 21:07 Zofran Injection IVPB 4 mg Q6H PRN Administration NAUSEA AND/OR VOMITING Multivit/Folic Acid/Iron 1 tab 05/24/18 10:00 05/25/18 09:15 Vitamins (Sjr) - PO 1 tab DAILY LEANNE Administration Senna/Docusate Sodium 2 tablet 05/24/18 22:00 05/23/18 21:19 Pericolace - PO 2 tablet HS PRN Administration CONSTIPATION Witch Brianna/Glycerin 1 pad 05/23/18 13:14 Tucks Pads - TP PRN PRN PAIN ASSESSMENT/PLAN: Patient is a 32 year old female, , presented with fever and tachycardia for 1 day. #Sepsis 2/2 Urinary tract infection: -UA: WBC 1421, LE 3+. -Repeat UA today - resolving UTI with WBC 11, LE trace -Urine culture growing E.coli -Ceftriaxone 2gm daily, may give last dose tomorrow. -Recommend PO Ceftin 250mg BID for 7 days on discharge. #POD2: normal vaginal delivery -continue present management as per OB -pain management #FEN -Not on any standing fluids. -Routine bmp monitoring -Regular diet. #Prophylaxis -TEDs, both legs #Disposition -full code Dispo: Thank you for this consultative opportunity. We are signing off for now. For any questions or concerns, please consult us again. Visit type - Emergency Visit Emergency Visit: Yes ED Registration Date: 05/22/18 Care time: The patient presented to the Emergency Department on the above date and was hospitalized for further evaluation of their emergent condition. - New Patient This patient is new to me today: No - Critical Care Critical Care patient: No
[2018-05-25 13:59] LABS: URINE APPEARANCE CLEAR; URINE BILIRUBIN NEGATIVE (<2.0 mg/dL); URINE COLOR YELLOW; URINE GLUCOSE (UA) NEGATIVE (NEGATIVE); URINE KETONE NEGATIVE (NEGATIVE); URINE LEUK ESTERASE TRACE (NEGATIVE); URINE NITRITE NEGATIVE (NEGATIVE); URINE PROTEIN NEGATIVE (NEGATIVE)
[2018-05-25 14:47] LABS: EPI CELLS RARE /HPF (FEW); URINE MUCUS RARE
--- NOTE | 2018-05-25 19:46 | PN ---
Teaching Attending Note Name of Resident: Francia Vázquez ATTENDING PHYSICIAN STATEMENT I saw and evaluated the patient. I reviewed the resident's note and discussed the case with the resident. I agree with the resident's findings and plan as documented. SUBJECTIVE: Comfortable with no acute distress. OBJECTIVE: Vital Signs Temperature 97.9 F 05/25/18 15:30 Pulse Rate 64 05/25/18 15:30 Respiratory Rate 18 05/25/18 15:30 Blood Pressure 108/63 05/25/18 15:30 O2 Sat by Pulse Oximetry (%) 98 05/25/18 07:40 GENERAL: Awake, alert, and fully oriented, in no acute distress. HEAD: Normal with no signs of trauma. EYES: Pupils equal, round and reactive to light, extraocular movements intact, sclera anicteric, conjunctiva clear. EARS, NOSE, THROAT: Ears normal, oropharynx clear without exudates. Moist mucous membranes. NECK: Normal range of motion, supple without lymphadenopathy, JVD, or masses. LUNGS: Breath sounds equal, clear to auscultation bilaterally. No wheezes, and no crackles. No accessory muscle use. HEART: Regular rate and rhythm, normal S1 and S2 positive, without murmur, rub or gallop. ABDOMEN: Soft, nontender, not distended, normoactive bowel sounds, no guarding, no rebound, no masses. MUSCULOSKELETAL: Normal range of motion at all joints. No bony deformities or tenderness. No CVA tenderness. EXTREMITIES: 2+ pulses, warm, well-perfused. No cyanosis. No clubbing. No peripheral edema. NEUROLOGICAL: Cranial nerves II-XII intact. Normal speech. Normal gait. PSYCHIATRIC: Cooperative. Good eye contact. Appropriate mood and affect. SKIN: Warm, dry, normal turgor, no rashes or lesions noted CBCD WBC 6.5 K/mm3 (4.0-10.0) 05/25/18 05:15 RBC 3.04 M/mm3 (3.60-5.2) L 05/25/18 05:15 Hgb 9.3 GM/dL (10.7-15.3) L 05/25/18 05:15 Hct 28.0 % (32.4-45.2) L 05/25/18 05:15 MCV 92.0 fl (80-96) 05/25/18 05:15 MCHC 33.3 g/dl (32.0-36.0) 05/25/18 05:15 RDW 14.4 % (11.6-15.6) 05/25/18 05:15 Plt Count 185 K/MM3 (134-434) 05/25/18 05:15 MPV 8.4 fl (7.5-11.1) 05/25/18 05:15 CMP Sodium 139 mmol/L (136-145) 05/25/18 05:15 Potassium 4.2 mmol/L (3.5-5.1) 05/25/18 05:15 Chloride 110 mmol/L (98-107) H 05/25/18 05:15 Carbon Dioxide 22 mmol/L (21-32) 05/25/18 05:15 Anion Gap 7 MMOL/L (8-16) L 05/25/18 05:15 BUN 9 mg/dL (7-18) 05/25/18 05:15 Creatinine 0.6 mg/dL (0.55-1.3) 05/25/18 05:15 Creat Clearance w eGFR > 60 (>60) 05/25/18 05:15 Random Glucose 114 mg/dL (74-106) H 05/25/18 05:15 Calcium 8.4 mg/dL (8.5-10.1) L 05/25/18 05:15 Total Bilirubin 2.0 mg/dL (0.2-1) H 05/23/18 16:00 AST 21 U/L (15-37) 05/23/18 16:00 ALT 19 U/L (13-61) 05/23/18 16:00 Alkaline Phosphatase 155 U/L (45-117) H 05/23/18 16:00 Total Protein 5.0 g/dl (6.4-8.2) L 05/23/18 16:00 Albumin 1.6 g/dl (3.4-5.0) L 05/23/18 16:00 CARDIAC ENZYMES Troponin I < 0.02 ng/ml (0.00-0.05) 05/23/18 16:00 Current Medications Generic Name Dose Route Start Last Admin Trade Name Freq PRN Reason Stop Dose Admin Acetaminophen 650 mg 05/23/18 13:14 05/25/18 13:29 Tylenol - PO 650 mg Q3H PRN Administration PAIN Benzocaine 1 spray 05/23/18 13:14 Americaine 20% Bode - TP PRN PRN PAIN Benzocaine 1 applic 05/23/18 13:14 Americaine Ointment - TP PRN PRN PAIN Bisacodyl 10 mg 05/23/18 13:14 Dulcolax Suppository - RC PRN PRN CONSTIPATION Ferrous Sulfate 325 mg 05/23/18 22:00 05/25/18 09:15 Feosol - PO 325 mg BID LEANNE Administration Oxytocin/Sodium Chloride 20 unit in 1,000 mls @ 125 mls/hr 05/23/18 13:15 07/10 14:20 Normal Saline+20 Units Oxytocin - IV 125 mls/hr ASDIR LEANNE Administration Ceftriaxone Sodium 2 gm/ 100 mls @ 100 mls/hr 05/23/18 16:30 05/25/18 09:15 Dextrose IVPB 100 mls/hr DAILY LEANNE Administration Protocol Ibuprofen 600 mg 05/23/18 13:14 05/25/18 13:28 Motrin - PO 600 mg Q4H PRN Administration PAIN Methylergonovine Maleate 0.2 mg 05/23/18 13:14 Methergine Injection - IM Q4H PRN EXCESSIVE BLEEDING (L&D) Ondansetron HCl 4 mg 05/24/18 21:02 05/24/18 21:07 Zofran Injection IVPB 4 mg Q6H PRN Administration NAUSEA AND/OR VOMITING Multivit/Folic Acid/Iron 1 tab 05/24/18 10:00 05/25/18 09:15 Vitamins (Sjr) - PO 1 tab DAILY LEANNE Administration Senna/Docusate Sodium 2 tablet 05/24/18 22:00 05/23/18 21:19 Pericolace - PO 2 tablet HS PRN Administration CONSTIPATION Witch Brianna/Glycerin 1 pad 05/23/18 13:14 Tucks Pads - TP PRN PRN PAIN ASSESSMENT AND PLAN: Patient is a 32 year old female, , presented with fever and tachycardia for 1 day. Patient delivered via NVD yesterday, with no complications. About an hour after, a rapid response was called as patient had an elevated temp of 100.6 and HR of 117. Hospitalist team arrived. Patient was started on # day #2 normal vaginal delivery; further care by OBGYN #acute UTI/pylonehritis : continue iv fluid, continue with IV Rocephin 2g IV daily ,can go home on ceftin 250mg x 7 more days total of 10days upon discharge. since sensitive to everything. and safe with . # Acute hypokalemia ; repeleted, improved DVT Px: early ambulation.
[2018-05-25] MEDS: SENNOSIDES/DOCUSATE COMBO (SENNA PLUS) TABLET (UD) PO PRN (21:06)
[2018-05-25 21:56] VITALS: BP 132/77; PULSE 77
[2018-05-26 06:25] VITALS: TEMP 97.8
[2018-05-26] MEDS: CEFTRIAXONE 2 GM in DEXTROSE 5%-WATER 100 ML IVPB SCH (09:22)
[2018-05-26] MEDS: PRENATAL VITAMINS W/ FOLIC ACID TABLET (FP) PO SCH (09:22)
[2018-05-26] MEDS: FERROUS SO4 325 MG TABLET (FP) PO SCH (09:22)
--- NOTE | 2018-05-26 12:22 | DS ---
Physical Examination Vital Signs: Vital Signs Temperature 97.8 F 05/26/18 06:00 Pulse Rate 77 05/25/18 20:00 Respiratory Rate 18 05/25/18 21:00 Blood Pressure 132/77 05/25/18 20:00 O2 Sat by Pulse Oximetry (%) 98 05/25/18 21:00 Constitutional: Yes: Well Nourished, No Distress, Calm Eyes: Yes: WNL, Conjunctiva Clear, EOM Intact HENT: Yes: WNL, Atraumatic, Normocephalic Neck: Yes: WNL, Supple, Trachea Midline Cardiovascular: Yes: WNL, Regular Rate and Rhythm Respiratory: Yes: WNL, Regular, CTA Bilaterally Gastrointestinal: Yes: WNL, Normal Bowel Sounds Musculoskeletal: Yes: WNL Extremities: Yes: WNL Edema: No Integumentary: Yes: WNL Neurological: Yes: WNL, Alert, Oriented ...Motor Strength: WNL Psychiatric: Yes: WNL Labs: CBC, BMP 05/25/18 05:15 05/25/18 05:15 Discharge Summary Reason For Visit: ADMIT Current Active Problems Cholestasis during (Acute) Large for gestational age fetus (Acute) Obesity (Acute) with 37 or more completed weeks gestation (Acute) Procedures: Principal: Hospital Course: Patient presented in labor Developed a fever intrapartum, treated for presumed Pyelo Had an uncomplicated Developed shortness of breath in the hours after delivery, rapid response called. Was given Nebulizer and she improved. Antibiotics switched to Rocephin and has been afebrile now on PPD#4 for over 24 hours. Culture showed E. Coli UTI, sensitive to Augmentin. Discharged home on PPD#4 in stable condition. Condition: Stable - Instructions Diet, Activity, Other Instructions: Regular diet Referrals: Kasia Cordero MD [Staff Physician] - Disposition: HOME - Home Medications Comprehensive Discharge Medication List: Ambulatory Orders Vitamins (Sjr) - 1 tab PO DAILY tablet 08/25/16 Ursodiol [Actigal] 300 mg PO BID 04/24/18 Ferrous Sulfate [Iron] 325 mg PO DAILY 05/18/18 Amoxicillin/Potassium Clav [Augmentin 500-125 Tablet] 1 each PO BID #10 tablet 05/26/18 Ibuprofen 600 mg PO Q6H PRN #30 tablet NS 05/26/18
[2018-05-26] MEDS ORDERED: DIPHTH,PERTUSS(ACELL),TET 0.5 ML DISP.SYRIN IM ONE (12:44)
[2018-05-26] MEDS ORDERED: FLU VACCINE QUAD 60 MCG/0.5 ML (MDV 18-19) IM ONE (12:44)
== END 2018-05-26 14:15 | disposition home or self-care (01) | DRG 560 ==
LOC: JLDR 23:45 → J3W 05-23 14:15
PROVIDERS: ADMIT Obstetrics & Gynecology; ATTEND Obstetrics & Gynecology
PROC: 10E0XZZ Delivery of Products of Conception, External Approach (ICD-10-PCS; principal; 2018-05-23)
DX: O98.82 Other maternal infectious and parasitic diseases complicating childbirth (principal); O75.3 Other infection during labor; A41.9 Sepsis, unspecified organism; N10 Acute pyelonephritis; K83.1 Obstruction of bile duct; O26.613 Liver and biliary tract disorders in pregnancy, third trimester; B96.29 Other Escherichia coli [E. coli] as the cause of diseases classified elsewhere; O36.63X0 Maternal care for excessive fetal growth, third trimester, not applicable or unspecified; O22.03 Varicose veins of lower extremity in pregnancy, third trimester; O90.89 Other complications of the puerperium, not elsewhere classified; E87.6 Hypokalemia; Z3A.37 37 weeks gestation of pregnancy; Z37.0 Single live birth
CPT/HCPCS: 36415; 59409; 80048; 80053; 80076; 81003; 81015; 84484; 85025; 85610; 85730; 86593; 86850; 86900; 86901; 87040; 87086; 87186; 87804; 90686; 90715; 93005; 93010; 93970-TC; 94640; G0008; J7030

== ENCOUNTER 2019-07-10 13:25 | Emergency (ER) | payer OTHER ==
--- NOTE | 2019-07-10 13:32 | PDOC ---
Rapid Medical Evaluation Time Seen by Provider: 07/10/19 13:28 Medical Evaluation: Allergies Allergy/AdvReac Type Severity Reaction Status Date / Time No Known Allergies Allergy Verified 05/22/18 23:51 07/10/19 13:28 I have performed a brief in-person evaluation of this patient. The patient presents with a chief complaint of: 8 week F, sent by OB today for concern of lack of FHT on doppler, here for US. pt denies abd pain or vag bldg. LMP 04/17/19 Pertinent physical exam findings: gravid appearance I have ordered the following: labs, T&S, US The patient will proceed to the ED for further evaluation. Discharge Disposition - Diagnosis Threatened miscarriage - Referrals - Patient Instructions - Post Discharge Activity
[2019-07-10 13:33] VITALS: BP 115/68; PULSE 90; TEMP 98.2; BMI 30.2
--- NOTE | 2019-07-10 14:06 | PDOC ---
History of Present Illness - General Chief Complaint: Pain Stated Complaint: vagnial bleeding (4wk pg) Time Seen by Provider: 07/10/19 13:28 History Source: Patient - History of Present Illness Timing/Duration: reports: other (today) Past History - Past Medical History Allergies/Adverse Reactions: Allergies Allergy/AdvReac Type Severity Reaction Status Date / Time No Known Allergies Allergy Verified 05/22/18 23:51 Home Medications: Ambulatory Orders Vitamins (Sjr) - 1 tab PO DAILY tablet 08/25/16 Ursodiol [Actigal] 300 mg PO BID 04/24/18 Ferrous Sulfate [Iron] 325 mg PO DAILY 05/18/18 Amoxicillin/Potassium Clav [Augmentin 500-125 Tablet] 1 each PO BID #10 tablet 05/26/18 Ibuprofen 600 mg PO Q6H PRN #30 tablet NS 05/26/18 Asthma: No Cancer: No Cardiac Disorders: No COPD: No Diabetes: No HTN: No Seizures: No Thyroid Disease: No - Reproductive History (#): 8 Para: 6 Cervical CA: No Dysfunctional Uterine Bleeding: No Endometrial CA: No Tubal Ligation: No - Psycho Social/Smoking Cessation Hx Smoking Status: No Smoking History: Never smoked Have you smoked in the past 12 months: No Number of Cigarettes Smoked Daily: 0 Hx Alcohol Use: No Drug/Substance Use Hx: No Substance Use Type: None Hx Substance Use Treatment: No Review of Systems - Review of Systems Constitutional: No: Chills, Fever ABD/GI: No: Nausea, Vomiting, Abdominal cramping : No: Dysuria *Physical Exam - Vital Signs Last Vital Signs Temp Pulse Resp BP Pulse Ox 98.2 F 90 20 115/68 100 07/10/19 13:30 07/10/19 13:30 07/10/19 13:30 07/10/19 13:30 07/10/19 13:30 - Physical Exam General Appearance: Yes: Appropriately Dressed. No: Apparent Distress HEENT: positive: Normal Voice Neck: positive: Supple Respiratory/Chest: negative: Respiratory Distress Gastrointestinal/Abdominal: positive: Soft. negative: Tender Musculoskeletal: negative: CVA Tenderness Integumentary: positive: Dry, Warm Neurologic: positive: Fully Oriented, Alert, Normal Mood/Affect ED Treatment Course - RADIOLOGY Radiology Studies Ordered: Category Date Time Status TRANSVAGINAL US PREG [US] Stat Ultrasound 07/10/19 13:31 Ordered Medical Decision Making - Medical Decision Making 07/10/19 14:05 33 yo F, , ~ 8 weeks and sent in by OB due to no heart on monitoring in office. No abd pain, vag bled, dysuria, n/v/f/c see exam 1st trimester preg w/ no FHR on monitoring in office Pt asx -US -UA 07/10/19 16:03 US read as + IUP @ about 12 weeks with heart rate documented. UA with no signs of infection. Patient declined to wait for beta. Will dc to continue follow-up with her OB Discharge - Discharge Information Problems reviewed: Yes Clinical Impression/Diagnosis: Qualifiers: Weeks of gestation: 12 weeks Qualified Code(s): Z3A.12 - 12 weeks gestation of Condition: Good Disposition: HOME - Follow up/Referral - Patient Discharge Instructions Additional Instructions: Your ultrasound showed that you have an intrauterine at about 12 weeks with heart activity documented to 165 bpm Your urine showed no signs of infection Continue to follow-up with your OB - Post Discharge Activity
[2019-07-10 15:49] LABS: URINE APPEARANCE CLEAR; URINE BILIRUBIN NEGATIVE (NEGATIVE); URINE COLOR YELLOW; URINE GLUCOSE (UA) NEGATIVE (NEGATIVE); URINE KETONE NEGATIVE (NEGATIVE); URINE LEUK ESTERASE NEGATIVE (NEGATIVE); URINE NITRITE NEGATIVE (NEGATIVE); URINE PROTEIN NEGATIVE (NEGATIVE); URINE UROBILINOGEN 0.2 mg/dL (0.2-1.0)
== END 2019-07-10 16:07 | disposition home or self-care (01) ==
LOC: JERFT 13:25
DX: O26.891 Other specified pregnancy related conditions, first trimester (principal); Z3A.01 Less than 8 weeks gestation of pregnancy; N93.9 Abnormal uterine and vaginal bleeding, unspecified
CPT/HCPCS: 36415; 76815; 81003; 84702; 99284-25

== ENCOUNTER 2019-07-23 20:09 | Emergency (ER) | payer OTHER ==
[2019-07-23 20:15] VITALS: BMI 35.2
[2019-07-23] MEDS ORDERED: SODIUM CHLORIDE 1,000 ML IV STA (20:16)
--- NOTE | 2019-07-23 20:16 | PDOC ---
Rapid Medical Evaluation Time Seen by Provider: 07/23/19 20:12 Medical Evaluation: Allergies Allergy/AdvReac Type Severity Reaction Status Date / Time No Known Allergies Allergy Verified 05/22/18 23:51 07/23/19 20:12 CC: Flu-like symptoms x3 days. +diffuse abd pain with vomiting. LMP- PE: VSS. AF. No focal findings. Orders: labs, urine, influenza, tylenol Patient will proceed to ED for further evaluation. 07/23/19 20:15 Discharge Disposition - Diagnosis Influenza-like symptoms - Referrals - Patient Instructions - Post Discharge Activity
[2019-07-23] MEDS ORDERED: ACETAMINOPHEN 500 MG TABLET (FP) PO ONE ×2 (20:17→22:06)
[2019-07-23] MEDS ORDERED: ONDANSETRON 4 MG/2 ML VIAL IVPUSH ONE (21:47)
--- NOTE | 2019-07-23 21:47 | PDOC ---
History of Present Illness - General Chief Complaint: Nausea/Vomiting Stated Complaint: COLD SYMPTOMS/ 14WKS Time Seen by Provider: 07/23/19 20:12 History Source: Patient - History of Present Illness Initial Comments: 07/23/19 21:45 33 year old female nasal congestion, cough, nausea/ vomiting x 3 days. patient is 14 weeks . denies vaginal bleeding, abdominal pain, fever/ chills. son with similar symptoms now feeling better. 07/23/19 22:52 Past History - Past Medical History Allergies/Adverse Reactions: Allergies Allergy/AdvReac Type Severity Reaction Status Date / Time No Known Allergies Allergy Verified 07/23/19 20:16 Home Medications: Ambulatory Orders Vitamins (Sjr) - 1 tab PO DAILY tablet 08/25/16 Ursodiol [Actigal] 300 mg PO BID 04/24/18 Ferrous Sulfate [Iron] 325 mg PO DAILY 05/18/18 Amoxicillin/Potassium Clav [Augmentin 500-125 Tablet] 1 each PO BID #10 tablet 05/26/18 Ibuprofen 600 mg PO Q6H PRN #30 tablet NS 05/26/18 Asthma: No Cancer: No Cardiac Disorders: No COPD: No Diabetes: No HTN: No Seizures: No Thyroid Disease: No - Reproductive History (#): 8 Para: 6 Cervical CA: No Dysfunctional Uterine Bleeding: No Endometrial CA: No Tubal Ligation: No - Psycho Social/Smoking Cessation Hx Smoking Status: No Smoking History: Never smoked Have you smoked in the past 12 months: No Number of Cigarettes Smoked Daily: 0 Hx Alcohol Use: No Drug/Substance Use Hx: No Substance Use Type: None Hx Substance Use Treatment: No Review of Systems - Review of Systems Able to Perform ROS?: Yes Is the patient limited Serbian proficient: No Constitutional: Yes: Fever HEENTM: Yes: Nose Congestion Respiratory: Yes: Cough ABD/GI: Yes: Nausea, Vomiting *Physical Exam - Vital Signs Last Vital Signs Temp Pulse Resp BP Pulse Ox 98.2 F 90 18 128/66 100 07/23/19 20:12 07/23/19 20:12 07/23/19 20:12 07/23/19 20:12 07/23/19 20:12 - Physical Exam General Appearance: Yes: Appropriately Dressed HEENT: positive: Nasal Congestion Respiratory/Chest: positive: Lungs Clear Cardiovascular: positive: Regular Rhythm, Regular Rate Gastrointestinal/Abdominal: positive: Normal Bowel Sounds, Tender (RUQ pain), Soft Extremity: positive: Normal Capillary Refill, Normal Inspection, Normal Range of Motion Integumentary: positive: Normal Color, Dry, Warm Neurologic: positive: Fully Oriented, Alert ED Treatment Course - LABORATORY CBC & Chemistry Diagram: 07/23/19 22:18 07/23/19 22:18 Medical Decision Making - Medical Decision Making A flu like illness p: cbc cmp ua abd us influenza 07/24/19 00:19 ABd US: Gallstones seen. No sign of inflammation. No biliary dilation seen. Liver shows no definite focal mass. Right kidney shows no hydronephrosis. Hepatic steatosis. Portal vein shows unremarkable venous waveform with hepatopedal flow. 07/24/19 01:25 patient is now complaining of throat pain . will rapid strep. 07/24/19 01:49 repeat temp 97.9 will d/c home. close pcp / ob follow up discussed with patient 07/24/19 03:48 Discharge - Discharge Information Problems reviewed: Yes Clinical Impression/Diagnosis: Influenza-like symptoms Cholelithiasis Qualifiers: Cholelithiasis location: gallbladder Cholecystitis presence: without cholecystitis Biliary obstruction: with biliary obstruction Qualified Code(s): K80.21 - Calculus of gallbladder without cholecystitis with obstruction Condition: Good Disposition: HOME - Follow up/Referral Referrals: Ivan Cordova MD [Staff Physician] - - Patient Discharge Instructions Patient Printed Discharge Instructions: DI for Vomiting -- Adult Additional Instructions: Drink plenty of fluids. 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 Return to the emergency room if symptoms worsen. - Post Discharge Activity Work/Back to School Note: Back to Work
[2019-07-23] MEDS ORDERED: ACETAMINOPHEN INJECTION 100 ML IVPB ONE (22:03)
[2019-07-23] MEDS ORDERED: ONDANSETRON 4 MG/2 ML VIAL ONE (22:04)
[2019-07-23] MEDS ORDERED: ACETAMINOPHEN 325 MG TABLET (FP) ONE (22:17)
[2019-07-23 22:39] LABS: BASO % 0.7 % (0-2.0); HEMATOCRIT 37.8 % (32.4-45.2); HEMOGLOBIN 13.1 GM/dL (10.7-15.3); LYMPH % 25.4 % (8-40); MCH 31.1 pg (25.7-33.7); MCHC 34.6 g/dl (32.0-36.0); MEAN PLT VOLUME 7.9 fl (7.5-11.1); MONO % 4.9 % (3.8-10.2); PLATELET COUNT 223 K/MM3 (134-434); RDW 13.6 % (11.6-15.6); WHITE BLOOD COUNT 8.5 K/mm3 (4.0-10.0)
[2019-07-23 23:12] LABS: ALBUMIN 3.4 g/dl (3.4-5.0); BILIRUBIN,TOTAL 0.4 mg/dL (0.2-1); BLOOD UREA NITROGEN 6.8 mg/dL (7-18); CALCIUM 8.9 mg/dL (8.5-10.1); CREATININE 0.6 mg/dL (0.55-1.3); POTASSIUM 3.6 mmol/L (3.5-5.1); TOT PROT 7.8 g/dl (6.4-8.2)
[2019-07-23 23:49] LABS: EPI CELLS 2.7 /HPF (0-5/HPF); HYALINE CASTS 3 /lpf (0-8); PH,URINE 6.5 (5.0-8.0); URINE APPEARANCE CLEAR; URINE BACTERIA 61.3 /hpf (NEGATIVE); URINE BILIRUBIN NEGATIVE (NEGATIVE); URINE COLOR YELLOW; URINE GLUCOSE (UA) NEGATIVE (NEGATIVE); URINE KETONE NEGATIVE (NEGATIVE); URINE LEUK ESTERASE TRACE (NEGATIVE); URINE NITRITE NEGATIVE (NEGATIVE); URINE PROTEIN NEGATIVE (NEGATIVE); URINE RBC 1 /hpf (0-4); URINE UROBILINOGEN 0.2 mg/dL (0.2-1.0); URINE WBC 3 /hpf (0-5)
[2019-07-24 01:29] VITALS: BP 106/56; PULSE 76
[2019-07-24 01:51] VITALS: TEMP 97.9
== END 2019-07-24 01:51 | disposition home or self-care (01) ==
LOC: JER 20:09
PROC: 3E033GC Introduction of Other Therapeutic Substance into Peripheral Vein, Percutaneous Approach (ICD-10-PCS; principal; 2019-07-23)
PROC: 3E0337Z Introduction of Electrolytic and Water Balance Substance into Peripheral Vein, Percutaneous Approach (ICD-10-PCS; 2019-07-23)
DX: O26.892 Other specified pregnancy related conditions, second trimester (principal); O98.512 Other viral diseases complicating pregnancy, second trimester; J11.1 Influenza due to unidentified influenza virus with other respiratory manifestations; O99.612 Diseases of the digestive system complicating pregnancy, second trimester; K80.21 Calculus of gallbladder without cholecystitis with obstruction; Z3A.14 14 weeks gestation of pregnancy
CPT/HCPCS: 36415; 76705-TC; 80053; 81003; 83690; 84702; 85025; 87070; 87804; 87880; 96361; 96374; 99285-25; J7030

== ENCOUNTER 2020-01-08 15:30 | Inpatient (IN) | payer OTHER ==
[2020-01-08] MEDS ORDERED: OXYTOCIN 30 UNITS in 0.9% NS 30 UNIT/500 ML INFUS.BAG IVPB SCH (15:45)
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
[2020-01-08 16:56] VITALS: BMI 35.9
[2020-01-08] MEDS: ELECTROLYTE-148 SOLN 1,000 ML IV SCH ×2 (17:00→23:00)
[2020-01-08 17:37] LABS: BASO % 0.5 % (0-2.0); EOS % 1.3 % (0-4.5); HEMATOCRIT 37.2 % (32.4-45.2); HEMOGLOBIN 12.7 GM/dL (10.7-15.3); LYMPH % 30.4 % (8-40); MCH 30.9 pg (25.7-33.7); MEAN CELL VOLUME 90.8 fl (80-96); MEAN PLT VOLUME 9.1 fl (7.5-11.1); MONO % 4.9 % (3.8-10.2); NEUT % 62.9 % (42.8-82.8); PLATELET COUNT 187 K/MM3 (134-434); WHITE BLOOD COUNT 4.8 K/mm3 (4.0-10.0)
--- NOTE | 2020-01-08 17:38 | PN ---
Progress Note, Labor Vaginal Exam #1 Labor Exam Date: 01/08/20 Labor Exam Time: 17:37 Heart Rate (range): Cat I Dilatation: 4 Effacement (%): 50 Presentation: Vertex/Position Station: -3 Remarks: AROM, clears Pitocin Benadryl for IV Anticipate Lory Cordero MD
[2020-01-08 17:49] LABS: INR 0.87 (0.83-1.09); PROTHROMBIN TIME (PATIENT) 10.2 SEC (9.7-13.0)
[2020-01-08] MEDS ORDERED: OXYTOCIN 30 UNITS in 0.9% NS 30 UNIT/500 ML INFUS.BAG IVPB ONE (17:49)
[2020-01-08 17:52] LABS: ACTIVATED PTT 28.2 SECONDS (25.2-36.5)
[2020-01-08 18:08] LABS: CREATININE 0.6 mg/dL (0.55-1.3)
[2020-01-08 18:09] LABS: POTASSIUM 3.6 mmol/L (3.5-5.1)
[2020-01-08] MEDS ORDERED: PROMETHAZINE HCL 25 MG/1 ML VIAL IVPB ONE (20:44)
[2020-01-08] MEDS ORDERED: BUTORPHANOL TARTRATE 2 MG/ML VIAL IVPB ONE (20:44)
--- NOTE | 2020-01-08 20:45 | PN ---
Progress Note, Labor Vaginal Exam #2 Labor Exam Date: 01/08/20 Labor Exam Time: 20:45 Heart Rate (range): Cat I Dilatation: 4 Effacement (%): 50 Amniotic Membrane Status: Ruptured Presentation: Vertex/Position Station: -3 Remarks: Stal now Continue pitocin Anticipate DMITRIY Cordero MD
[2020-01-08] MEDS ORDERED: BUTORPHANOL TARTRATE 2 MG/ML VIAL ONE (20:52)
[2020-01-08] MEDS ORDERED: PROMETHAZINE HCL 25 MG/1 ML VIAL ONE (20:53)
--- NOTE | 2020-01-09 00:09 | PN ---
Progress Note, Labor Vaginal Exam #3 Labor Exam Date: 01/09/20 Labor Exam Time: 00:08 Heart Rate (range): Cat I Dilatation: 5 Effacement (%): 50 Amniotic Membrane Status: Ruptured Presentation: Vertex/Position Station: -3 Remarks: Pt comfortable s/p stadol Continue pitocin Anticipate Lory Cordero MD
--- NOTE | 2020-01-09 02:04 | PN ---
Progress Note, Labor Vaginal Exam #4 Labor Exam Date: 01/09/20 Labor Exam Time: 02:04 Heart Rate (range): Cat I Dilatation: 6 Effacement (%): 90 Amniotic Membrane Status: Ruptured Presentation: Vertex/Position Station: -1 Remarks: Some early decels descent noted Continue current management Anticipate DMITRIY Cordero MD
[2020-01-09] MEDS ORDERED: LIDOCAINE HCL 1% PRESERVATIVE FREE - 30ML VIAL ONE (02:43)
[2020-01-09] MEDS ORDERED: OXYTOCIN 20 UNITS in 0.9% NS 20 UNIT/1,000 ML INFUS.BAG IV ONE (02:43)
[2020-01-09] MEDS ORDERED: MISOPROSTOL 200 MCG TABLET ONE (02:59)
[2020-01-09] MEDS ORDERED: MISOPROSTOL 200 MCG TABLET NR ONE (03:00)
[2020-01-09] MEDS ORDERED: BENZOCAINE 28 GM HEMORRHOIDAL OINTMENT TP PRN (03:08)
[2020-01-09] MEDS ORDERED: METHYLERGONOVINE MALEATE 0.2 MG/1 ML AMP IM PRN (03:08)
[2020-01-09] MEDS ORDERED: BENZOCAINE 20% 57 GM BOTTLE TP PRN (03:08)
[2020-01-09] MEDS ORDERED: WITCH HAZEL 50% (TUCKS) 40 PAD/JAR PAD TP PRN (03:08)
[2020-01-09] MEDS ORDERED: BISACODYL 10 MG SUPP.RECT RC PRN (03:08)
--- NOTE | 2020-01-09 03:08 | PN ---
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 No nuchal. No meconium. 38 week . No anesthesia. Spontaneous delivery of anterior shoulder and body. Infant placed on mother's abdomen. Cord clamped and cut. Apgars 9/9. Weight pending. Spontaneous delivery of intact placenta with 3VC. Fundus firm. Perineum inspected, no lacerations. 1000mcg [place] cytotec given prophylactically. EBL 400ml. Kasia Cordero MD
[2020-01-09] MEDS ORDERED: OXYTOCIN 20 UNITS in 0.9% NS 20 UNIT/1,000 ML INFUS.BAG IV SCH (03:15)
[2020-01-09] MEDS: ACETAMINOPHEN 325 MG TABLET (FP) PO PRN ×2 (06:45→18:07)
[2020-01-09] MEDS: IBUPROFEN 600 MG TABLET (FP) PO PRN ×2 (06:46→18:06)
[2020-01-09] MEDS: PRENATAL VITAMINS W/ FOLIC ACID TABLET (FP) PO SCH (09:15)
--- NOTE | 2020-01-09 15:37 | CON.PSY ---
Psychiatry Consult Chief Complaint: 34 year old just delivered her 8 th child seen for Psych eval. Has a history of Depression. Sees her Therapist regularly on Face time. Had been on antidepressants in the Past and may go abck on them later on.. Reports feeling well. happy with her baby. not suicidal or Homicidal; at this time. - Previous Psychiatric Treatment Outpatient: Less than 6 mos ago Inpatient: None - Previous Substance Abuse Treatment Outpatient: None Inpatient: None - Reason for Previous Treatment Reason for Previous Treatment: Major Depression - Current Medications Current Medications: Active Medications Acetaminophen (Tylenol -) 650 mg PO Q3H PRN PRN Reason: PAIN Last Admin: 01/09/20 06:45 Dose: 650 mg Documented by: Benzocaine (Americaine 20% [place] -) 1 spray TP PRN PRN PRN Reason: PAIN Last Admin: 01/09/20 06:46 Dose: 1 spray Documented by: Benzocaine (Americaine Ointment -) 1 applic TP PRN PRN PRN Reason: PAIN Bisacodyl (Dulcolax Suppository -) 10 mg RC PRN PRN PRN Reason: CONSTIPATION Parenteral Electrolytes (Plasma-Lyte 148 -) 1,000 mls @ 125 mls/hr IV ASDIR LEANNE Last Admin: 01/08/20 23:00 Dose: 125 mls/hr Documented by: Oxytocin/Sodium Chloride (Normal Saline+30 Units Oxytocin) 30 unit in 500 mls @ 1 mls/hr IVPB TITR [facility]; Protocol Last Titration: 01/09/20 00:05 Dose: 0.54 unit/hr, 9 mls/hr Documented by: Oxytocin/Sodium Chloride (Normal Saline+20 Units Oxytocin -) 20 unit in 1,000 mls @ 125 mls/hr IV ASDIR LEANNE Last Admin: 01/09/20 03:00 Dose: 125 mls/hr Documented by: Ibuprofen (Motrin -) 600 mg PO Q4H PRN PRN Reason: PAIN Last Admin: 01/09/20 06:46 Dose: 600 mg Documented by: Methylergonovine Maleate (Methergine Injection -) 0.2 mg IM Q4H PRN PRN Reason: EXCESSIVE BLEEDING (L&D) Multivit/Folic Acid/Iron ( Vitamins (Sjr) -) 1 tab PO DAILY LEANNE Last Admin: 01/09/20 09:15 Dose: 1 tab Documented by: Senna/Docusate Sodium (Pericolace -) 2 tablet PO HS PRN PRN Reason: CONSTIPATION Witch Brianna/Glycerin (Tucks Pads -) 1 pad TP PRN PRN PRN Reason: PAIN - Allergies Allergies: Allergies Allergy/AdvReac Type Severity Reaction Status Date / Time No Known Allergies Allergy Verified 01/08/20 16:27 - Current Living Status Usual Living Arrangement: With Child - Current Mental Status Evaluation Appearance: Well Groomed Attitude: Cooperative - Affect Affect: Full Range Appropriateness: Appropriate to Content - Mood Mood: Euthymic - Speech/Language Expressive: Coherent - Psychomotor Activity Psychomotor Activity: Normal - Thought Process Thought Process: Intact - Thought Content Hallucinations: Absent Delusions: Absent - Self Perception Self Perception: No Impairment - Cognition Attention: Alert Orientation: Time Memory, Immediate Recall: Intact Memory, Short Term: 3/3 Memory, Remote with Promptin/3 - Concentration Serial Sevens Intact: Yes Simple Calculations Intact: Yes - Abstraction Proverb Interpretation: Intact Judgement: Intact - Insight Insight: Intact - Impulse Control Impulse Control: Good Control - Suicidal Ideation Suicidal Ideation: No - Homicidal Ideation Homicidal Ideation: No Assessment/Plan 10 No meds needed now. 2) Spoke to her Therapist today, will continue with her.. 3) d/c home when medically stable.
[2020-01-09] MEDS ORDERED: ONDANSETRON 4 MG/2 ML VIAL IVPB PRN ×2 (19:14→20:19)
[2020-01-09] MEDS: ELECTROLYTE-148 SOLN 1,000 ML IV SCH (21:27)
[2020-01-10] MEDS ORDERED: diphenhydrAMINE HCL 25 MG CAPSULE (FP) PO PRN (01:38)
[2020-01-10 05:17] VITALS: BP 96/51
--- NOTE | 2020-01-10 06:49 | DS ---
Physical Exam-DIRECTOR OF RESPIRATORY THERAPY Vital Signs: Vital Signs Temperature 97.7 F 01/10/20 05:17 Pulse Rate 57 L 01/10/20 05:17 Respiratory Rate 20 01/10/20 05:17 Blood Pressure 96/51 L 01/10/20 05:17 O2 Sat by Pulse Oximetry (%) 98 01/09/20 19:00 Constitutional: Yes: Well Nourished, No Distress, Calm Eyes: Yes: WNL, Conjunctiva Clear, EOM Intact HENT: Yes: WNL, Atraumatic, Normocephalic Neck: Yes: WNL, Supple, Trachea Midline Cardiovascular: Yes: WNL, Regular Rate and Rhythm Respiratory: Yes: WNL, Regular, CTA Bilaterally Gastrointestinal: Yes: WNL ...Rectal Exam: Yes: WNL Renal/: Yes: WNL ....Post : Yes: Uterus firm, Uterus non-tender, Slight lochia rubra Breast(s): Yes: WNL Musculoskeletal: Yes: WNL Extremities: Yes: WNL Edema: No Integumentary: Yes: WNL Neurological: Yes: WNL, Alert, Oriented ...Motor Strength: WNL Psychiatric: Yes: WNL, Alert, Oriented Labs: CBC, BMP 01/08/20 17:05 01/08/20 17:05 Delivery - Delivery Vaginal Delivery: Spontaneous Type of Anesthesia: None Episiotomy/Laceration: None EBL (cc): 300 Delivery, Single - Stages of Labor Date 1st Stage Initiatied: 01/08/20 Time 1st Stage Initiated: 17:35 Date 2nd Stage Initiated: 01/09/20 Time 2nd Stage Initiated: 02:49 Date of Delivery: 01/09/20 Time of Delivery: 02:55 Time Placenta Delivered: 03:00 Placenta: Yes: Spontaneous - 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 Present: No Gender: Female Weight: 7 lb 13 oz Position: Left, OA Total Hours ROM (Hrs/Mins): [id number] - 5 Minutes Total Score: 9 1 Minute Total Score: 9 - Feeding Plan Initial Plan: Elected not to breastfeed exclusively throughout hospitalization Discharge Summary Problems reviewed: Yes Reason For Visit: INDUCTION OF LABOR Procedures: Principal: Health Concerns: depression Plan of Treatment: follow up [facility] care 2 weeks Condition: Stable - Instructions Diet, Activity, Other Instructions: Regular Diet Follow up in 1 week for a visit Referrals: Kasia Cordero MD [Staff Physician] - Disposition: HOME - Home Medications Comprehensive Discharge Medication List: Ambulatory Orders Vitamins (Sjr) - 1 tab PO DAILY tablet 08/25/16 Ferrous Sulfate [Feosol] 325 mg PO DAILY 12/06/19 Insulin (Levemir) [Levemir Vial] 10 unit SQ HS 12/06/19 Breast Pump 1 each MC 5XD 30 Days #1 each 01/09/20 Ferrous Sulfate [Feosol] 325 mg PO DAILY #30 tablet 01/09/20 Ibuprofen 600 mg PO Q6H PRN #30 tablet 01/09/20
[2020-01-10 08:26] LABS: BASO % 0.6 % (0-2.0); EOS % 1.8 % (0-4.5); HEMATOCRIT 33.5 % (32.4-45.2); HEMOGLOBIN 11.6 GM/dL (10.7-15.3); LYMPH % 26.9 % (8-40); MCH 31.7 pg (25.7-33.7); MCHC 34.7 g/dl (32.0-36.0); MEAN CELL VOLUME 91.3 fl (80-96); MEAN PLT VOLUME 9.3 fl (7.5-11.1); MONO % 3.5 % (3.8-10.2); NEUT % 67.2 % (42.8-82.8); PLATELET COUNT 175 K/MM3 (134-434); RBC 3.66 M/mm3 (3.60-5.2); RDW 14.4 % (11.6-15.6); WHITE BLOOD COUNT 6.9 K/mm3 (4.0-10.0)
[2020-01-10] MEDS: PRENATAL VITAMINS W/ FOLIC ACID TABLET (FP) PO SCH (10:00)
[2020-01-10 10:13] VITALS: PULSE 65; TEMP 98.2
[2020-01-10] MEDS ORDERED: SENNOSIDES/DOCUSATE COMBO (SENNA PLUS) TABLET (UD) PO PRN (22:00)
== END 2020-01-10 12:25 | disposition home or self-care (01) | DRG 560 ==
LOC: JLDR 15:30 → J3W 01-09 06:20
PROVIDERS: ADMIT Obstetrics & Gynecology; ATTEND Obstetrics & Gynecology
PROC: 10907ZC Drainage of Amniotic Fluid, Therapeutic from Products of Conception, Via Natural or Artificial Opening (ICD-10-PCS; principal; 2020-01-08)
PROC: 3E033VJ Introduction of Other Hormone into Peripheral Vein, Percutaneous Approach (ICD-10-PCS; 2020-01-08)
PROC: 10E0XZZ Delivery of Products of Conception, External Approach (ICD-10-PCS; 2020-01-09)
DX: O26.62 Liver and biliary tract disorders in childbirth (principal); K83.1 Obstruction of bile duct; O24.424 Gestational diabetes mellitus in childbirth, insulin controlled; O99.344 Other mental disorders complicating childbirth; F32.9 Major depressive disorder, single episode, unspecified; F39 Unspecified mood [affective] disorder; Z3A.38 38 weeks gestation of pregnancy; Z37.0 Single live birth; Z86.19 Personal history of other infectious and parasitic diseases; Z91.410 Personal history of adult physical and sexual abuse; Z86.2 Personal history of diseases of the blood and blood-forming organs and certain disorders involving the immune mechanism; Z90.49 Acquired absence of other specified parts of digestive tract; Z79.4 Long term (current) use of insulin
CPT/HCPCS: 36415; 59409; 80048; 82962; 85025; 85610; 85730; 86780; 86850; 86900; 86901; U0003

== ENCOUNTER 2023-12-09 11:03 | Emergency (ER) | payer OTHER ==
[2023-12-09 11:10] VITALS: BP 121/74; PULSE 74; RESP 20; TEMP 98.9; BMI 51.5
[2023-12-09 12:11] LABS: BASO % 0.7 % (0-2.0); EOS % 1.6 % (0-4.5); HEMATOCRIT 44.3 % (32.4-45.2); HEMOGLOBIN 15.6 GM/dL (10.7-15.3); LYMPH % 33.7 % (8-40); MCH 30.8 pg (25.7-33.7); MCHC 35.2 g/dl (32.0-36.0); MEAN CELL VOLUME 87.4 fl (80-96); MEAN PLT VOLUME 7.8 fl (7.5-11.1); MONO % 5.3 % (3.8-10.2); NEUT % 58.7 % (42.8-82.8); PLATELET COUNT 246 10^3/uL (134-434); RBC 5.07 M/mm3 (3.60-5.2); RDW 13.3 % (11.6-15.6); WHITE BLOOD COUNT 7.5 K/mm3 (4.0-10.0)
[2023-12-09 12:13] LABS: EPI CELLS 1 /uL (0-25.1); HYALINE CASTS 0 /uL (0-3.1); PH,URINE 6.5 (5.0-8.0); URINE APPEARANCE CLEAR; URINE BACTERIA 3 /uL (0-1359); URINE BILIRUBIN NEGATIVE (NEGATIVE); URINE COLOR YELLOW; URINE GLUCOSE (UA) 3+ (NEGATIVE); URINE KETONE NEGATIVE (NEGATIVE); URINE LEUK ESTERASE NEGATIVE (NEGATIVE); URINE NITRITE NEGATIVE (NEGATIVE); URINE PROTEIN NEGATIVE (NEGATIVE); URINE RBC 4 /uL (0-23.9); URINE UROBILINOGEN 0.2 mg/dL (0.2-1.0); URINE WBC 0 /uL (0-25.8)
[2023-12-09 12:19] LABS: HCG,QUALITATIVE URINE Positive
[2023-12-09 12:31] LABS: POTASSIUM 4.3 mmol/L (3.5-5.1)
[2023-12-09 12:32] LABS: CALCIUM 9.8 mg/dL (8.5-10.1)
[2023-12-09 12:33] LABS: BLOOD UREA NITROGEN 9.5 mg/dL (7-18)
[2023-12-09 12:36] LABS: CREATININE 0.9 mg/dL (0.55-1.3)
[2023-12-09] MEDS ORDERED: ACETAMINOPHEN 325 MG TABLET (FP) ONE (14:01)
[2023-12-09] MEDS: ACETAMINOPHEN 325 MG TABLET (FP) PO ONE (14:06)
== END 2023-12-09 15:06 | disposition home or self-care (01) ==
LOC: JER 11:03
DX: O09.521 Supervision of elderly multigravida, first trimester (principal); O20.0 Threatened abortion; O24.419 Gestational diabetes mellitus in pregnancy, unspecified control; Z3A.01 Less than 8 weeks gestation of pregnancy
CPT/HCPCS: 36415; 76817-TC; 80048; 81003; 84702; 84703; 85025; 86850; 86900; 86901; 99284-25

== ENCOUNTER 2025-02-13 21:10 | Inpatient (IN) | payer OTHER ==
[2025-02-13 21:17] VITALS: BMI 28.3
[2025-02-13] MEDS ORDERED: ONDANSETRON 4 MG/2 ML VIAL ONE (22:58)
[2025-02-13] MEDS ORDERED: FAMOTIDINE 20 MG/50 ML IVPB 20 MG/50 ML MG IVPB ONE (22:58)
[2025-02-13] MEDS ORDERED: MAG HYDROX/AL HYDROX/SIMETH 30 ML UNIT-DOSE CUP ONE (22:58)
[2025-02-13] MEDS: MAG HYDROX/AL HYDROX/SIMETH 30 ML UNIT-DOSE CUP PO ONE (22:59)
[2025-02-13] MEDS: ONDANSETRON 4 MG/2 ML VIAL IVPUSH ONE (23:00)
[2025-02-13] MEDS: FAMOTIDINE 20 MG/50 ML IVPB 20 MG/50 ML MG IVPB ONE (23:00)
[2025-02-13 23:20] LABS: ABSOLUTE IMMATURE GRANULOCYTES 0.04 x10^3/uL (0.0-0.031); BASOPHILS # 0.05 x10^3/uL (0.01-0.08); EOSINOPHIL % 0.6 % (0.7-5.8); EOSINOPHILS # 0.06 x10^3/uL (0.04-0.36); MCHC 33.9 g/dl (32.2-35.5); MEAN CELL VOLUME 91.3 fl (79.4-94.8); MEAN PLT VOLUME 11.4 fl (9.4-12.3); MONOCYTE # 0.55 x10^3/uL (0.24-0.86); MONOCYTE % 5.4 % (4.7-12.5); RDW 12.8 % (12.1-16.8)
[2025-02-13 23:28] LABS: INR 0.99 (0.83-1.09); PROTHROMBIN TIME (PATIENT) 10.8 SEC (9.7-13.0)
[2025-02-13 23:31] LABS: ACTIVATED PTT 26.6 SECONDS (25.2-36.5)
[2025-02-13 23:37] LABS: GLUCOSE,RANDOM 141.0 mg/dL (74-106); TOT PROT 7.9 g/dl (6.4-8.2)
[2025-02-13 23:38] LABS: CO2 23.0 mmol/L (21-32)
[2025-02-13 23:40] LABS: ALK PHOS 116.0 U/L (40-150)
[2025-02-13 23:43] LABS: CREATININE 0.6 mg/dL (0.55-1.3); SGOT/AST 53.0 U/L (5-34); SGPT/ALT 48.0 U/L (0-55)
[2025-02-14 00:03] LABS: HCV DIAGNOSTIC IN-HOUSE W/RFLX NON-REACTIVE (NONREACTIVE)
[2025-02-14 00:04] LABS: HIV INTERPRETATION NEGATIVE (NEGATIVE)
[2025-02-14] MEDS: LACTATED RINGERS SOLUTION 1000 ML INFUS.BAG IV ONE (00:05)
[2025-02-14] MEDS ORDERED: ACETAMINOPHEN INJECTION 100 ML ONE ×2 (00:52→17:32)
[2025-02-14] MEDS ORDERED: PIPERACILLIN/TAZOB 3.375 GM 3.375 GM/50 ML BAG IVPB ONE (00:52)
[2025-02-14] MEDS ORDERED: KETOROLAC TROMETHAMINE 15 MG/ML VIAL ONE (00:52)
[2025-02-14] MEDS: KETOROLAC TROMETHAMINE 15 MG/ML VIAL IVPUSH ONE (00:54)
[2025-02-14] MEDS: ACETAMINOPHEN 1000 MG/100 ML BAG IVPB ONE ×2 (00:55→17:38)
[2025-02-14] MEDS: PIPERACILLIN/TAZOB 3.375 GM 3.375 GM in DEXTROSE 5%-WATER - 50 ML IVPB ONE (00:55)
[2025-02-14 01:43] LABS: URINE APPEARANCE Clear; URINE BILIRUBIN Negative (NEGATIVE); URINE COLOR Yellow; URINE GLUCOSE (UA) 2+ (NEGATIVE); URINE KETONE 3+ (NEGATIVE); URINE LEUK ESTERASE Negative (NEGATIVE); URINE NITRITE Negative (NEGATIVE); URINE PROTEIN Negative (NEGATIVE); URINE UROBILINOGEN 0.2 mg/dL (0.2-1.0)
[2025-02-14] MEDS ORDERED: ONDANSETRON 4 MG/2 ML VIAL IVPUSH PRN ×2 (03:13→17:36)
[2025-02-14] MEDS ORDERED: ACETAMINOPHEN 1000 MG/100 ML BAG IVPB PRN (03:14)
[2025-02-14] MEDS ORDERED: POTASSIUM CHLORIDE ORAL LIQUID 20 MEQ/15 ML ONE (04:12)
[2025-02-14] MEDS: POTASSIUM CHLORIDE ORAL LIQUID 20 MEQ/15 ML PO ONE (04:15)
[2025-02-14] MEDS: LACTATED RINGERS SOLUTION 1,000 ML/1,000 ML INFUS.BAG IV SCH (04:55)
[2025-02-14] MEDS: INSULIN ASPART SLIDING SCALE (NOVOLOG) 1 VIAL SQ SCH (06:57)
[2025-02-14] MEDS: PIPERACILLIN/TAZOB 3.375 GM 3.375 GM in DEXTROSE 5%-WATER - 50 ML IVPB SCH (09:22)
[2025-02-14] MEDS: morphine CARPU-JECT 2 MG/1 ML DISP.SYRIN IVPUSH PRN (09:37)
[2025-02-14 10:15] LABS: ABSOLUTE IMMATURE GRANULOCYTES 0.04 x10^3/uL (0.0-0.031); BASOPHILS # 0.06 x10^3/uL (0.01-0.08); EOSINOPHIL % 0.4 % (0.7-5.8); EOSINOPHILS # 0.04 x10^3/uL (0.04-0.36); MCHC 33.9 g/dl (32.2-35.5); MEAN CELL VOLUME 90.8 fl (79.4-94.8); MEAN PLT VOLUME 9.9 fl (9.4-12.3); MONOCYTE # 0.64 x10^3/uL (0.24-0.86); MONOCYTE % 6.2 % (4.7-12.5); RDW 13.0 % (12.1-16.8)
[2025-02-14 10:19] LABS: INR 1.08 (0.83-1.09); PROTHROMBIN TIME (PATIENT) 11.9 SEC (9.7-13.0)
[2025-02-14 11:58] LABS: GLUCOSE,RANDOM 88.0 mg/dL (74-106)
[2025-02-14 11:59] LABS: TOT PROT 6.6 g/dl (6.4-8.2)
[2025-02-14 12:00] LABS: CO2 22.0 mmol/L (21-32)
[2025-02-14 12:02] LABS: ALK PHOS 88.0 U/L (40-150)
[2025-02-14 12:04] LABS: SGOT/AST 45.0 U/L (5-34); SGPT/ALT 40.0 U/L (0-55)
[2025-02-14 12:05] LABS: CREATININE 0.55 mg/dL (0.55-1.3)
[2025-02-14] MEDS ORDERED: ALBUTEROL SO4 2.5/IPRATROPIUM 0.5 INH SOL 3 ML VIAL.NEB. NEB PRN ×2 (13:52→17:36)
[2025-02-14] MEDS ORDERED: ROCURONIUM BROMIDE 50 MG/5 ML SYRINGE ONE (14:58)
[2025-02-14] MEDS ORDERED: MIDAZOLAM HCL 2 MG/2 ML SINGLE DOSE VIAL ONE (14:58)
[2025-02-14] MEDS ORDERED: PROPOFOL 20 ML ONE (14:58)
[2025-02-14] MEDS ORDERED: PIPERACILLIN/TAZOBACTAM 3.375 GM VIAL IVPB ONE (15:11)
[2025-02-14] MEDS: PIPERACILLIN/TAZOBACTAM 3.375 GM VIAL IVPB ONE (15:20)
[2025-02-14] MEDS: BUPIVACAINE HCL/PF 0.25% (2.5MG/ML) 10 ML VIAL IJ ONE ×2 (15:33)
[2025-02-14] MEDS ORDERED: SUGAMMADEX SODIUM 200 MG/2 ML VIAL ONE (16:19)
[2025-02-14] MEDS ORDERED: ONDANSETRON 4 MG/2 ML VIAL ONE (16:32)
[2025-02-14] MEDS ORDERED: KETOROLAC TROMETHAMINE 30 MG/1 ML VIAL ONE (16:32)
[2025-02-14] MEDS ORDERED: LACTATED RINGERS SOLUTION 1,000 ML IV SCH (17:00)
[2025-02-14] MEDS ORDERED: morphine CARPU-JECT 2 MG/1 ML DISP.SYRIN IVPUSH PRN (17:36)
[2025-02-14] MEDS: LACTATED RINGERS SOLUTION 1,000 ML IV SCH (18:06)
[2025-02-14 20:40] VITALS: RESP 16
[2025-02-15] MEDS: ACETAMINOPHEN 1000 MG/100 ML BAG IVPB PRN (02:21)
[2025-02-15] MEDS: PIPERACILLIN/TAZOB 3.375 GM 3.375 GM in DEXTROSE 5%-WATER - 50 ML IVPB SCH ×2 (02:44→02:48)
[2025-02-15] MEDS: FLU VACC TS2025-26(6MOS UP)/PF 45 MCG/0.5 ML SYRINGE IM ONE (02:49)
[2025-02-15] MEDS: INSULIN ASPART SLIDING SCALE (NOVOLOG) 1 VIAL SQ SCH (06:23)
[2025-02-15 07:26] VITALS: BP 99/54; PULSE 66; TEMP 98.4
[2025-02-15 08:24] LABS: ABSOLUTE IMMATURE GRANULOCYTES 0.03 x10^3/uL (0.0-0.031); BASOPHILS # 0.02 x10^3/uL (0.01-0.08); EOSINOPHIL % 0.0 % (0.7-5.8); EOSINOPHILS # 0.00 x10^3/uL (0.04-0.36); MCHC 33.7 g/dl (32.2-35.5); MEAN CELL VOLUME 91.2 fl (79.4-94.8); MEAN PLT VOLUME 10.1 fl (9.4-12.3); MONOCYTE # 0.32 x10^3/uL (0.24-0.86); MONOCYTE % 3.7 % (4.7-12.5); RDW 12.6 % (12.1-16.8)
[2025-02-15 09:00] LABS: GLUCOSE,RANDOM 107.0 mg/dL (74-106); TOT PROT 6.3 g/dl (6.4-8.2)
[2025-02-15 09:01] LABS: CO2 20.0 mmol/L (21-32)
[2025-02-15 09:03] LABS: ALK PHOS 90.0 U/L (40-150)
[2025-02-15 09:06] LABS: CREATININE 0.55 mg/dL (0.55-1.3); SGOT/AST 63.0 U/L (5-34); SGPT/ALT 46.0 U/L (0-55)
[2025-02-15] MEDS: ACETAMINOPHEN 325 MG TABLET (FP) PO PRN (09:09)
== END 2025-02-15 14:31 | disposition home or self-care (01) | DRG 263 ==
LOC: JER 21:10 → JERBED 02-14 00:23 → J8W 02-14 04:39
PROVIDERS: ADMIT Internal Medicine; ATTEND Nurse Practitioner Family
PROC: 0FT44ZZ Resection of Gallbladder, Percutaneous Endoscopic Approach (ICD-10-PCS; principal; 2025-02-14 14:30)
DX: K80.00 Calculus of gallbladder with acute cholecystitis without obstruction (principal); E11.9 Type 2 diabetes mellitus without complications; J45.909 Unspecified asthma, uncomplicated
CPT/HCPCS: 36415; 71045-TC-FY; 76705-TC; 80053; 81003; 82962; 83036; 83690; 83735; 84100; 84484; 84703; 85025; 85610; 85730; 86803; 86850; 86900; 86901; 87389; 88304-TC; 93005; 93010; 94760; 99285-25